=== PATIENT | female | born 1945 | race Caucasian/White ===

== ENCOUNTER 2022-02-26 08:49 | Outpatient (CLI) | payer MEDICARE, BC, SELFPAY ==
--- NOTE | 2022-02-26 09:15 | CRLHL7_ITS ---
For Patients: As a result of the Century Cures Act, medical imaging exams and procedure reports are released immediately into your electronic medical record. You may view this report before your referring provider. If you have questions, please contact your health care provider. BILATERAL SCREENING MAMMOGRAM WITH COMPUTER-AIDED DETECTION AND TOMOSYNTHESIS TECHNIQUE: CC and MLO views were obtained. These mammographic images have been obtained using full-field digital technique. These mammographic images were interpreted with the benefit of computer-aided detection. Breast Tomosynthesis was used in this interpretation. COMPARISON FILM: 01/05/21, 12/07/19, 06/23/18. FINDINGS: There are scattered areas of fibroglandular density IMPRESSION: There is no radiographic evidence for malignancy. ASSESSMENT: BI-RADS Category 1: Negative RECOMMENDATION: Routine screening mammogram in 1 year. A lay language report of this examination will be provided to the patient. Param Lubin M.D. Diagnostic Radiologist [email or web address] JAZZY/Dictated by: Param Lubin MD @ 02/26/2022 10:11:00 AM (Electronically Signed)
== END 2022-02-26 08:50 | disposition home or self-care (01) ==
PROVIDERS: Visit Provider Family Medicine
DX: Z12.31 Encounter for screening mammogram for malignant neoplasm of breast (principal)
CPT/HCPCS: 77063; 77067

== ENCOUNTER 2022-11-15 11:28 | Outpatient (CLI) | payer MEDICARE, BC, SELFPAY | END 2022-11-15 11:29 | disposition home or self-care (01) | LOC: OP CLINIC 11:31 | PROVIDERS: PCP Family Medicine; Visit Provider Internal Medicine | DX: Z86.010 Personal history of colon polyps (principal); K57.30 Diverticulosis of large intestine without perforation or abscess without bleeding | CPT/HCPCS: 45378; J2250; J3010 ==

== ENCOUNTER 2023-03-04 10:26 | Outpatient (CLI) | payer MEDICARE, BC, SELFPAY ==
--- NOTE | 2023-03-04 10:45 | CRLHL7_ITS ---
For Patients: As a result of the Century Cures Act, medical imaging exams and procedure reports are released immediately into your electronic medical record. You may view this report before your referring provider. If you have questions, please contact your health care provider. BILATERAL SCREENING MAMMOGRAM WITH COMPUTER-AIDED DETECTION AND TOMOSYNTHESIS TECHNIQUE: CC and MLO views were obtained. These mammographic images have been obtained using full-field digital technique. These mammographic images were interpreted with the benefit of computer-aided detection. Breast Tomosynthesis was used in this interpretation. COMPARISON FILM: 02/26/22, 01/05/21, 12/07/19. FINDINGS: There are scattered areas of fibroglandular density IMPRESSION: There is no radiographic evidence for malignancy. ASSESSMENT: BI-RADS Category 1: Negative RECOMMENDATION: Routine screening mammogram in 1 year. A lay language report of this examination will be provided to the patient. Param Lubin M.D. Diagnostic Radiologist [email or web address] JAZZY/Dictated by: Param Lubin MD @ 03/04/2023 12:48:00 PM (Electronically Signed)
== END 2023-03-04 10:27 | disposition home or self-care (01) ==
LOC: MAMMO 10:28
PROVIDERS: PCP Family Medicine; Visit Provider Family Medicine
DX: Z12.31 Encounter for screening mammogram for malignant neoplasm of breast (principal)
CPT/HCPCS: 77063; 77067

== ENCOUNTER 2023-04-15 12:34 | Outpatient (CLI) | payer MEDICARE, BC, SELFPAY ==
--- NOTE | 2023-04-15 13:00 | CRLHL7_ITS ---
For Patients: As a result of the Century Cures Act, medical imaging exams and procedure reports are released immediately into your electronic medical record. You may view this report before your referring provider. If you have questions, please contact your health care provider. DXA BONE MINERAL DENSITY STUDY Current height (in): 61.1. Weight (lb): 166.0. Menopause age: 54. Ethnicity: White. Reason for exam: Osteoporosis. 1. Have you had a previous hip or vertebral fracture? No. 2. Have you had any fractures during your adult life which did not result from significant trauma (e.g., auto accident)? No. 3. Did either of your parents have a hip fracture? Yes. 4. Do you smoke? No. 5. Have you ever taken Glucocorticoids? No. 6. Do you have rheumatoid arthritis? No. 7. Do you have secondary osteoporosis? No. 8. Do you drink 3 or more alcoholic drinks per day? No. 9. Are you being treated for osteoporosis? No. 10. Have you ever taken any of the following medications: Actonel, Evista, Fosamax, Miacalcin, Reclast, Boniva, Forteo, HRT (i.e. estrogen/hormone therapy), Protelos, Prolia, Vitamin D, Calcium, other ??? please specify. ANSWER: Yes, vitamin D. 11. Do you have any of the following medical conditions: Anorexia or bulimia, asthma or emphysema, end stage renal disease, hyperparathyroidism, any seizure disorders, cancer, inflammatory bowel diseases, hysterectomy, other ??? please specify. ANSWER: No. 12. What was your maximum height (inches)? 62. 13. Do you perform weight bearing exercise regularly? No. 14. Do you regularly consume dairy products? Yes. 15. Do you drink caffeinated beverages? Yes. 16. At what age did your period start? 14. 17. Are you premenopausal? No. 18. How many full-term pregnancies have you had? 0. 19. Have you ever missed your period for more than 6 months in a row (not including or menopause)? No. TECHNIQUE: Bone mineral density study was performed using the MedTest DX. FINDINGS: The results of the study expressed as bone mineral density (BMD) are as follows: Lumbar spine L1 to L2: BMD: 1.096 g/cm2. T-score: 1.1. Z-score: 3.4. Neck Left: BMD: 0.745 g/cm2. T-score: -0.9. Z-score: 1.3. Right: BMD: 0.755 g/cm2. T-score: -0.8. Z-score: 1.3. Total Left: BMD: 0.987 g/cm2. T-score: 0.4. Z-score: 2.3. Right: BMD: 1.049 g/cm2. T-score: 0.9. Z-score: 2.9. IMPRESSION: Normal bone density. *Comparison exams done prior to 11/2019 were performed on different unit, NCR. COMPARISON: Compared with scan of 08/01/2011, the bone mineral density has increased by 9.0 percent at the spine and increased by 2.6 percent at the hip. Bernie Curiel M.D. Diagnostic/Breast Radiologist [email or web address] MATHEW/marvel: Transcribed: 8:57 am DW/Dictated by: Bernie Curiel MD @ 04/15/2023 4:06:00 PM (Electronically Signed)
== END 2023-04-15 12:35 | disposition home or self-care (01) ==
LOC: RAD 12:35
PROVIDERS: PCP Family Medicine; Visit Provider Family Medicine
DX: M81.0 Age-related osteoporosis without current pathological fracture (principal)
CPT/HCPCS: 77080

== ENCOUNTER 2023-11-11 11:18 | Outpatient (CLI) | payer MEDICARE, BC, SELFPAY | END 2023-11-11 11:19 | disposition home or self-care (01) | PROVIDERS: PCP Family Medicine; Visit Provider Surgery | DX: K80.20 Calculus of gallbladder without cholecystitis without obstruction (principal); R10.13 Epigastric pain | CPT/HCPCS: 80076; 83690 ==

== ENCOUNTER 2023-11-17 10:07 | Day surgery (SDC) | payer MEDICARE, BC, SELFPAY ==
[2023-11-17] VITALS (13 sets, daily range): BP systolic 138–176; BP diastolic 68–88; PULSE 59–77; RESP 14–18; TEMP 36.2–36.8; O2SAT 95–98; BMI 32.3
[2023-11-17] MEDS: LACTATED RINGERS 1000 ML 1,000 ML 100 ML IV (10:10)
[2023-11-17] MEDS: SODIUM CHLORIDE 0.9 % (FLUSH) 10 ML SYRINGE IVF (10:30)
--- NOTE | 2023-11-17 10:44 | W.PM.H&PU ---
History & Physical Update History & Physical Update H&P Reviewed and patient assessed: The following changes are noted below H&P Updates: Patient's bilirubin was noted to be slightly elevated in clinic Last week. Therefore have added on cholangiograms. Will recheck labs this morning preop as well.
--- NOTE | 2023-11-17 10:45 | P.GSOP_ITS ---
Operative Note Date of procedure: 11/17/23 Pre-op diagnosis: 1. Cholecystitis 2. Elevated bilirubin, concerning for possible choledocholithiasis Post-op diagnosis: 1. Cholecystitis 2. No evidence of choledocholithiasis on cholangiogram Type of Procedure: 1. Laparoscopic cholecystectomy 2. Intraoperative cholangiogram Indications: The patient is a 78-year-old female who developed severe epigastric and right upper quadrant pain last month. She was seen at an outside facility. She was found to have gallstones and a mild elevation in transaminases. Scan showed possible biliary dilatation, however there was no comment of this on her ultrasound. She continued to have symptoms after this episode, despite eating a low-fat diet. In clinic she was found to have a direct bilirubin of 0.8. I recommended cholecystectomy with cholangiogram to rule out common bile duct obstruction. Procedure Description: After discussing the risks and benefits of the procedure, the patient signed informed consent.? The operative site was marked and the patient was brought to the operating room and placed on the operating table in supine position.? Care was taken to pad the patient's pressure points.?? The patient was then intubated by anesthesia.?? The operative site was then prepped and draped in the usual sterile fashion.? A time-out was then performed. Entrance to the abdomen was gained via a 5 mm Visiport in the left upper quadrant. The abdomen was insufflated and briefly surveyed for signs of injury. There was none. A 10 mm umbilical port was placed as well as 2 working ports along the right costal margin, all under direct vision. The patient was then placed in reverse Trendelenburg position with the right side up. The gallbladder fundus was grasped and retracted cephalad. A small amount of dissection was needed to free omental adhesions from the gallbladder. The infundibulum was grasped. A combination of hook cautery and blunt dissection was used to carefully dissect out the cystic duct and artery until they could clearly be seen entering the gallbladder without any intervening structures. There was mild edema noted in the tissues, indicating cholecystitis. The cystic artery was then clipped with 2 clips proximal 1 clip distal. This was transected. The cystic duct was mildly dilated. I placed a clip proximally. I then created a ductotomy with a scissor. A cholangiocatheter was then placed in the duct and fluoro was brought into the field. Contrast was in jected into the duct. There was brisk filling of the cystic duct, common bile duct, right and left hepatic ducts as well as the duodenum. There did not appear to be any filling defects noted. The cholangiocatheter was then removed. Because the cystic duct was mildly dilated, the duct was transected and an 0 Vicryl and an 0 PDS endoloop were each placed on the cystic duct stump. The gallbladder was then taken off of the liver bed and removed from the abdomen using an Endo-Catch bag. The gallbladder bed was surveyed for hemostasis which appeared excellent. A small amount of sludge which had spilled was suctioned from the abdomen. The patient was laid flat, the abdomen desufflated and the ports removed. The umbilical port fascia was closed with 0 Vicryl. The skin was closed with absorbable subcuticular suture. Sterile dressings were then applied. Instrument sponge and needle counts were correct at the end of the case. The patient was then woken and transferred to the PACU in stable condition. The patient tolerated the procedure well. Findings: 1. Gallstones with pericholecystic inflammation indicating cholecystitis 2. Negative intraoperative cholangiogram. Anesthesia: GETA Surgeon: Maria Del Carmen Cardenas MD Estimated blood loss (mL): 5 Specimen: Gallbladder Condition: stable Disposition: PACU
[2023-11-17 10:59] LABS: Albumin* 4.5 g/dL (3.3-5.0)
--- NOTE | 2023-11-17 11:01 | W.ANESCHARGE ---
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
[2023-11-17 11:02] LABS: Alanine Aminotransferase* 87 U/L (4-35); Alkaline Phosphatase* 130 U/L (40-150); Aspartate Amino Transferase* 41 U/L (12-35); Bilirubin Direct* 0.5 mg/dL (0.0-0.5); Bilirubin Total* 0.9 mg/dL (0.1-1.5); Total Protein* 7.5 g/dL (6.0-8.3)
[2023-11-17] MEDS: CEFAZOLIN 2 GM INJ IVP (11:05)
[2023-11-17] MEDS: 0.9% SODIUM CHL 50 ML VIAL INJECTION (11:40)
[2023-11-17] MEDS: iopamidoL 50 ML VIAL INJECTION (11:40)
[2023-11-17] MEDS: BUPIVACAINE 0.25% 30 ML INJECTION (12:00)
--- NOTE | 2023-11-17 12:30 | CRLHL7_ITS ---
For Patients: As a result of the Century Cures Act, medical imaging exams and procedure reports are released immediately into your electronic medical record. You may view this report before your referring provider. If you have questions, please contact your health care provider. INDICATION : Laparoscopic cholecystectomy. TECHNIQUE : Intraoperative cholangiogram. Contrast injected via gallbladder neck and cystic duct. FINDINGS : Fluoroscopy time was 30.8 seconds. 3 images were obtained. IMPRESSION : Normal caliber intra and extrahepatic ducts. Small filling defects present on the 1st 2 images representing air bubbles or small stones. The final image appears more clear. Contrast seen within the duodenum. Dictated by Param Lubin MD @ 11/18/2023 11:39:50 AM (Electronically Signed)
--- NOTE | 2023-11-17 12:43 | W.ANESCHARGE ---
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
--- NOTE | 2023-11-28 12:00 | W.ANESCHARGE ---
Anesthesia Charges Start Date/Time Anesthesia Start Date: 11/17/23 Anesthesia Start Time: 10:55 Stop Date/Time Anesthesia Stop Date: 11/17/23 Anesthesia Stop Time: 12:37 Summary Extremes of Age - Over 70 or under 1: MDA
== END 2023-11-17 14:21 | disposition home or self-care (01) ==
LOC: OR 10:10
PROVIDERS: PCP Family Medicine; Visit Provider Surgery
PROC: 0FT44ZZ Resection of Gallbladder, Percutaneous Endoscopic Approach (ICD-10-PCS; CPT 47563; principal; 2023-11-17 11:00)
DX: K80.10 Calculus of gallbladder with chronic cholecystitis without obstruction (principal); R74.01 Elevation of levels of liver transaminase levels
CPT/HCPCS: 47563; 00790; 36415; 74300; 76000; 80076; 88304; 99100; J0665; J0690; J1100; J2371; J2405; J3010; J7120; Q9967

== ENCOUNTER 2024-03-05 12:40 | Outpatient (CLI) | payer MEDICARE, BC, SELFPAY ==
--- OUTSIDE RECORDS SUMMARY | 2024-03-05 12:43 | XMS_ITS | Referral Summary ---
Author Organization [facility] Address [address] [place] [address] Care Team Providers Care Tanning Drum Operator Name Role Phone Merle [place] NP Primary Care Provider Allergies No known active allergies Medications Medication Sig Dispensed Refills Start Date End Date Status metroNIDAZOLE (METROCREAM) 0.75 % creamIndications:Ros acea Apply topically 2 times daily Apply on cheeks and nose. 45 g 11 05/02/2014 Active Additional Information Patient not taking.Reported on 01/23/2018 Cukfpfz-Njsriwbte-Cx tamin D (CALCIUM 500 PO) Take 1,000 mg by mouth Active vitamin D3 (CHOLECALCIFEROL) 2000 units (50 mcg) tablet Take 1 tablet by mouth daily Active Active Problems Problem Noted Date Diagnosed Date BCC (basal cell carcinoma), face 05/05/2012 Chronic skin ulcer 12/10/2011 Overview: Problem list name updated by automated process. Provider to review Diagnosis updated by automated process. Provider to review and confirm. Immunizations Name Administration Dates Next Due Influenza (IIV3) PF 03/19/2013,06/04/2012 Social History Tobacco Use Types Packs/Day Years Used Date Smoking Tobacco: Never Smokeless Tobacco: Never Alcohol Use Standard Drinks/Week Comments Not Asked 0 (1 standard drink = 0.6 oz pur e alcohol) PHQ-2 Answer Date Recorded PHQ-2 Score 0 03/22/2019 Adolescent Education Answer Date Record ed Getting School Help Needed Not on file 03/09 Sex and Gender Information Value Date Recorded Sex Assigned at Not on file Gender Identity Not on file Sexual Orientation Not on file Last Filed Vital Signs Vital Sign Reading Time Taken Comments Blood Pressure 175/94 10/08/2011 9:15 AM CDT Pulse 72 10/08/2011 9:15 AM CDT Temperature - - Respiratory Rate - - Oxygen Saturation - - Inhaled Oxygen Concentration - - Weight - - Height - - Body Mass Index - - Plan of Treatment Not on file Care Teams Tanning Drum Operator Relationship Specialty Start Date End Date Merle [place] NP PCP - General 06/05/15
--- OUTSIDE RECORDS SUMMARY | 2024-03-05 12:43 | XMS_ITS ---
Author Organization [facility] Address [address] [place] [address] Care Team Providers Care Nursing Officer Name Role Phone Unavailable Unavailable Unavailable Surgery Details Not on file Complications Check Surgery Details section. Procedure Estimated Blood Loss Check Surgery Details section. Procedure Findings Check Surgery Details section. Procedure Specimens Taken Check Surgery Details section.
--- OUTSIDE RECORDS SUMMARY | 2024-03-05 12:43 | XMS_ITS | Encounter Summary ---
Author Organization [facility] er Address [address] [place] [address] Care Team Providers Care Front Desk Associate Name Role Phone Rustam Goodrich MD Primary Care Provider Reason for Visit * Consultation (Routine) - Authorized Specialty Diagnoses / Procedures Referred By Mike dobbins Referred To Contact Sleep Medicine Diagnoses At risk for sleep apnea Procedures Home sleep test Rustam Goodrich MD [address] [place] [address] Referral ID Status Reason Start Date Expiration Date Visits Requested Visits Authorized [id number] Authorized Specialty Services Required 11/12/2023 05/13/2024 1 1 Encounter Details Date Type Department Care Team (Latest Contact Info) Description 12/01/2023 2:40 PM CDT Clinical Support [facility] [address] Sleep Medicine [address] [place] [phone] At risk for sleep apnea Social History Tobacco Use Types Packs/Day Years Used Date Smoking Tobacco: Never Smokeless Tobacco: Never Alcohol Use Standard Drinks/Week Comments Yes 1 (1 standard drink = 0.6 oz pur e alcohol) B1300 Health Literacy Answer Date Recor ded How often do you need to hav e someone help you when you read instructions, pamphlets, or other written material from your doctor or pharmacy? Never 10/23/2023 Humiliation, Afraid, Rape, and Kick questionnair e Answer Date Recorded Within the last year, have y ou been afraid of your partner or ex-partner? No 10/23/2023 Within the last year, have y ou been humiliated or emotionally abused in other ways by your partner or ex-partner? No Within the last year, have y ou been kicked, hit, slapped, or otherwise physically hurt by your partner or ex-partner? No 10/23/2023 Within the last year, have y ou been raped or forced to have any kind of sexual activity by your partner or ex-partner? No 10/23/2023 Social Connection and Isolat ion Panel [NHANES] Answer Date Recorded In a typical week, how many times do you talk on the phone with family, friends, or neighbors? More than three times a week 10/23/2023 How often do you get togethe r with friends or relatives? Once a week 10/23/2023 How often do you attend chur or gnosticist services? More than 4 times per year 10/23/2023 Do you belong to any clubs o r organizations such as denominational groups, unions, fraternal or athletic groups, or school groups? Yes 10/23/2023 How often do you attend meet ings of the clubs or organizations you belong to? More than 4 times per year 10/23/2023 Are you , , di vorced, , never , or living with a partner? 10/23/2023 AUDIT-C Answer Date Recorded Q1: How often do you have a drink containing alc ohol? Monthly or less 10/23/2023 Q2: How many drinks containi ng alcohol do you have on a typical day when you are drinking? 1 or 2 10/23/2023 Q3: How often do you have si x or more drinks on one occasion? Never 10/23/2023 Overall Financial Resource Strain (CARDIA) Answe r Date Recorded How hard is it for you to pa y for the very basics like food, housing, medical care, and heating? Not hard at all 10/23/2023 PHQ-2 Answer Date Recorded PHQ-9 Total Score 0 11/12/2023 [facility] - Occupational Stress Questionnaire Answer Date Recorded Do you feel stress - tense, restless, nervous, or anxious, or unable to sleep at night because your mind is troubled all the time - these days? Not at all 10/23/2023 Exercise Vital Sign Answer Date Recorde d On average, how many days pe r week do you engage in moderate to strenuous exercise (like a brisk walk)? 3 days 10/23/2023 On average, how many minutes do you engage in exercise at this level? 30 min 10/23/2023 Hunger Vital Sign Answer Date Recorded Within the past 12 months, y ou worried that your food would run out before you got the money to buy more. Never true 10/23/19 24 Within the past 12 months, t he food you bought just didn't last and you didn't have money to get more. Never true 10/23/2023 PRAPARE - Transportation Answer Date Re corded In the past 12 months, has l ack of transportation kept you from medical appointments or from getting medications? No 10/01 In the past 12 months, has l ack of transportation kept you from meetings, work, or from getting things needed for daily living? No 10/23/2023 Housing Stability Vital Sign Answer Rao e Recorded In the last 12 months, was t here a time when you were not able to pay the mortgage or rent on time? No 03/26/2023 In the last 12 months, how many places have you lived? 1 03/26/2023 In the last 12 months, was t here a time when you did not have a steady place to sleep or slept in a detention (including now)? No 03/26/2023 Housing Stability Vital Sign Answer Rao e Recorded In the last 12 months, was t here a time when you were not able to pay the mortgage or rent on time? No 10/23/2023 In the past 12 months, how m any times have you moved where you were living? 1 10/23/2023 At any time in the past 12 m [facility], were you homeless or living in a detention (including now)? No 10/23/2023 Education Answer Date Recorded What is the highest level of school you have completed or the highest degree you have received? High school graduate 01/08/2019 Sex and Gender Information Value Date Recorded Sex Assigned at Female 10/10/2020 11:09 AM CDT Gender Identity Female 10/10/2020 11:09 AM CDT Sexual Orientation Not on file documented as of this encounter Plan of Treatment Upcoming Encounters Date Type Department Care Team (Late st Contact Info) Description 03/18/2024 11:00 AM CDT Appointment [facility] [address] [address] 04/12/2024 1:00 PM ELECTRO MECHANICAL SOLAR TECHNICIAN Telemedicine [facility] 52 Sleep Medicine [address] [facility] 52 [place] [address] Stephanie Nicholson, TOPPIECE CUTTER, HIGH RIGGER [address] [facility] 52 [place] [address] documented as of this encounter Visit Diagnoses Diagnosis At risk for sleep apnea documented in this encounter Care Teams Front Desk Associate Relationship Specialty Start Date End Date Rustam Goodrich MD [address] [facility] 20 [place] [address] PCP - General 03/20/23 documented as of this encounter
--- OUTSIDE RECORDS SUMMARY | 2024-03-05 12:43 | XMS_ITS | Encounter Summary ---
Author Organization [facility] er Address [address] [place] [address] Care Team Providers Care Generation Technician Name Role Phone Rustam Goodrich MD Primary Care Provider [phone] Encounter Details Date Type Department Care Team (Late st Contact Info) Description 02/05/2024 Telephone [facility] [address] [place] [address] Rustam Goodrich MD [address] [facility] 20 [place] [address] Social History Tobacco Use Types Packs/Day Years [...] How often do you attend chur or methodist services? More than 4 times per year 10/23/2023 Do you belong to any clubs o r organizations such as jehovah's witness groups, unions, fraternal or athletic groups, or [...] Answer Date Recorded PHQ-9 Total Score 0 02/05/2024 [facility] - Occupational Stress Questionnaire Answer Date [...] place to sleep or slept in a correction (including now)? No 03/26/2023 Housing Stability Vital Sign Answer Rao e Recorded In the last 12 months, was t here a time when you were not able to pay the mortgage or rent on time? No 10/23/2023 In the past 12 months, how m any times have you moved where you were living? 1 10/23/2023 At any time in the past 12 m [facility], were you homeless or living in a correction (including now)? No 10/23/2023 Education Answer Date Recorded What is the highest level of school you have completed or the highest degree you have received? High school graduate 01/08/2019 Sex and Gender Information Value Date Recorded Sex Assigned at Female 10/10/2020 11:09 AM CDT Gender Identity Female 10/10/2020 11:09 AM CDT Sexual Orientation Not on file documented as of this encounter Miscellaneous Notes * Telephone Encounter - Dayanara Rodríguez RN - 02/05/2024 1:01 PM CDT Noted. * Telephone Encounter - Jojo Carney - 02/05/2024 12:31 PM CDT Referral faxed to [facility] RAD; fax [phone]. * Telephone Encounter - Dayanara Rodríguez RN - 02/05/2024 12:23 PM CDT Please fax referral to [facility] (Radiology) documented in this encounter Plan of Treatment Upcoming Encounters Date Type Department Care Team (Late st Contact Info) Description 03/18/2024 11:00 AM CDT Appointment [facility] [address] [address] 04/12/2024 1:00 PM FOSTER CARE CASE MANAGER Telemedicine [facility] 52 Sleep Medicine [address] [facility] 52 [place], [place] [id number] Stephanie Nicholson, WILDLIFE BIOLOGY TECHNICIAN, RESEARCH RN SPEC [phone] [facility] 52 [place] [address] documented as of this encounter Visit Diagnoses Not on filedocumented in this encounter Care Teams Generation Technician Relationship Specialty Start Date End Date Rustam Goodrich MD [address] [facility] 20 [place] [address] PCP - General 03/20/23 documented as of this encounter
--- OUTSIDE RECORDS SUMMARY | 2024-03-05 12:43 | XMS_ITS | Clinical Summary ---
Author Organization [facility] er Address [address] [place] [address] Care Team Providers Care Solar Sales Representative Name Role Phone Rustam Goodrich MD Primary Care Provider Allergies No known active allergies Medications Medication Sig Dispensed Refills Start Date End Date Status triamcinolone (KENALOG) 0.1 % cream Apply topically 2 (two) times a day Using on FACE Active ibuprofen (ADVIL) 400 MG tablet Take 1 tablet (400 mg total) by mouth every 6 (six) hours if needed for mild pain Take with food. Active Cholecalciferol (Vitamin D-3) 25 MCG (1000 UT) capsule Take 1 capsule by mouth 1 (one) time each day Active losartan (Cozaar) 50 MG tabletIndications: Primary hypertension Take one a day for blood pressure 90 tablet 3 04/02/2023 Active azelaic acid (FINACEA) 15 % gelIndications:Ros acea Apply 1 application topically 2 (two) times a day Do not fill until requested. 45 g 11 03/04/2024 5 Active famotidine (PEPCID) 10 MG tablet Take by mouth 4 Discontinue d(Therapy Completed) Active Problems Problem Noted Date Diagnosed Date Latent tuberculosis 10/24/2023 Gallbladder colic 10/24/2023 Diverticulosis 04/02/2023 Primary hypertension 04/02/2023 Acne rosacea 02/11/2022 Primary osteoarthritis of right knee 02/03/2021 Rotator cuff strain, left, initial encounter 08/2020 Obesity (BMI 30.0-34.9) 01/19/2020 Family history of colon cancer in mother 020 Adenomatous colon polyp 04/12/2013 Overview: Overview: Colonoscopy 04/2013 polyp repeat in 5 years BCC (basal cell carcinoma), face 05/05/2012 Encounters Date Type Department Care Team Description 03/04/2024 2:00 PM CDT Office Visit [address] 11 [place] [address] Tiki Alexander MD Encounter for follow-up examination after completed treatment for cancer (Primary Dx); Keratosis, seborrheic; History of skin cancer; Acne rosacea; Folliculitis 02/17/2024 Telephone [place] [address] [place] [address] Rustam Goodrich MD VACCINATION TDAP 02/05/2024 11:20 AM CDT Office Visit [address] [address] Rustam Goodrich MD Right lower quadrant pain (Primary Dx); Chronic SI joint pain; Chronic right hip pain 02/05/2024 Telephone [place] [address] [place] [address] Rustam Goodrich MD 12/09/2023 Orders Only Family Medicine 4th Floor [address] [place] [address] Rustam Goodrich MD Primary hypertension from Last 3 Months Immunizations Name Administration Dates Next Due COVID-19, mRNA, LNP-S, bival ent booster 12 yr and older, PF, 30mcg/0.3mL dose (pfizer) 03/21/2022 COVId-19, mRNA, LNP-s, PF, 5 0mcg/0.5mL Ages 12+ (Moderna Spikevax) 03/27/2023 Covid-19 Vaccine, Unspecifie d Formulation 03/26/2023 Flu Vaccine High Dose 65yrs and Older IM 03/18/2023,04/04/2022,04/04/2021,03/20,04/14/2019,03/27/2018,03/24/2017 ,04/03/2015,03/28/2014 Hepatitis A 09/02/2012,07/16/1999 Hepatitis B 01/15/2000,08/16/1999,07/16/1999 INFLUENZA QUADRIVALENT MDV (IM) 03/18/20,04/04/2022,04/14/2019,03/27,03/24/2017,04/03/2015,03/28/2014 ,04/06/2010 Influenza, Split Virus, Triv alent, Preservative 03/19/2013,06/04/2012 Influenza, Trivalent, PF 04/06/2010 Influenza, Unspecified 03/19/2013,06/04/2012 Pneumococcal Conjugate 13-Valent 08/16/2016 Pneumococcal Polysaccharide 07/22/2011 TD Preservative Free 04/06/2010 Td 04/06/2010 Tdap 09/02/2012 Typhoid Inactivated 09/02/2012 Zoster 08/05/2011 Zoster Recombinant 03/01/2022,11/20/2021 Family History Medical History Relation Comments Stroke Brother 2 ALS Father at 71 Colon cancer Mother at 103 Relation Status Comments Brother 1 Alive Brother 2 Brother 3 Passed shortly a fter Father Mother (Age 103) Social History Tobacco Use Types Packs/Day Years Used Date Smoking Tobacco: Never Smokeless Tobacco: Never Tobacco Cessation:Counseling Given: No Alcohol Use Standard Drinks/Week Comments Yes 1 [...] any clubs o r organizations such as restorationist groups, unions, fraternal or athletic groups, or [...] Date Recorded PHQ-9 Total Score 0 02/05/2024 [facility] - Occupational Stress [...] place to sleep or slept in a fpc (including now)? No 03/26/2023 Housing Stability Vital Sign Answer Rao e Recorded In the last 12 months, was t here a time when you were not able to pay the mortgage or rent on time? No 10/23/2023 In the past 12 months, how m any times have you moved where you were living? 1 10/23/2023 At any time in the past 12 m [facility], were you homeless or living in a fpc (including now)? No 10/23/2023 Education Answer Date Recorded What is the highest level of school you have completed or the highest degree you have received? High school graduate 01/08/2019 Sex and Gender Information Value Date Recorded Sex Assigned at Female 10/10/2020 11:09 AM CDT Gender Identity Female 10/10/2020 11:09 AM CDT Sexual Orientation Not on file Last Filed Vital Signs Vital Sign Reading Time Taken Comments Blood Pressure 124/78 02/05/2024 11:18 AM CDT Pulse 74 02/05/2024 11:16 AM CDT Temperature 36.3 ??C (97.3 ??F) 02/05/2024 11:16 AM C DT Respiratory Rate 16 02/05/2024 11:16 AM CDT Oxygen Saturation 95% 02/05/2024 11:16 AM CDT Inhaled Oxygen Concentration - - Weight 73.3 kg (161 lb 9.6 oz) 02/05/2024 11:16 AM CDT Height 152.4 cm (5') 02/05/2024 11:16 AM CDT Body Mass Index 31.56 02/05/2024 11:16 AM CDT Plan of Treatment Upcoming Encounters Date Type Department Care Team (Late st Contact Info) Description 03/18/2024 11:00 AM CDT Appointment [facility] [address] [facility] [address] [place] [address] 04/12/2024 1:00 PM NEONATAL SPECIALIST Telemedicine [facility] 52 Sleep Medicine [address] [facility] [address] [place] [address] Stephanie Nicholson, NEONATAL SPECIALIST, AUTOMATION SOFTWARE ENGINEER [address] [facility] [address] [place], [place] [id number] Health Maintenance Due Date Last Done Comments Bone Density Scan 01/15/2024 01/14/2019, , 08/27/2016 COVID-19 Vaccine ( season) 2024 03/27/2023, 03/26/2023, 03/21/2022, Additional history exists Influenza Vaccine (#1) 2024 , 03/18/2023, 04/04/2022, Additional history exists Mammogram 03/04/2024 03/04/2023, 02/01, 01/05/2021, Additional history exists Medicare Annual Wellness Visit (AWV) 10/22/2024 10/23/2023 Fall Risk Performed 02/04/2025 02/05/2024 Colonoscopy 11/16/2027 07/24/2018 DTaP,Tdap,and Td Vaccines (3 - Td or Tdap) 02/04/2034 02/05/2024, 09/02/2012, 04/06/2010, Additional history exists Pneumococcal Vaccine: 65+ Years Completed 08/16/2016, 07/22/2011 Zoster Vaccines Completed 03/01/2022, 11/01, 08/05/2011 HPV Vaccines Aged Out No longer eligi ble based on patient's age to complete this topic Advance Directives For more information, please contact: [phone] Documents on File Type Date Recorded Patient Ecdis N Navigation Operator Expl anation Advance Directive 08/04/2020 2:37 PM Advanc e Directive Care Teams Solar Sales Representative Relationship Specialty Start Date End Date Rustam Goodrich MD [address] [place] [phone] PCP - General 03/20/23
--- OUTSIDE RECORDS SUMMARY | 2024-03-05 12:43 | XMS_ITS | Referral Summary ---
Author Organization [facility] Address [address] [place] [address] Care Team Providers Care Financial Reserve Clerk Name Role Phone Unavailable Primary Care Provider Unavailabl e Source Comments Patient records contain information from all sites at [facility]. For routine questions regarding patient records, call [phone] during business hours, M-F 8:00 AM - 5:00 PM Central Time. Record requests for emergency care only can be directed to [phone] at any time.[facility] Encounters Date Type Department Care Team Description 02/17/2024 12:51 PM CDT - 02/17/2024 11:59 PM CDT Hospital Encounter Department of Radiology in [address] [place] [address] Rustam Goodrich II, M.D. Pain Right Lower Quadrant Discharge Disposition: Home or Self Care from Last 3 Months Allergies No known active allergies Medications Medication Sig Dispensed Refills Start Date End Date Status cholecalciferol (VITAMIN D3) 50 mcg (2,000 Unit) tablet Take 1 tablet by mouth daily. Active losartan (COZAAR) 50 mg tablet Take 50 mg by mouth daily. 04/02/2023 Active metroNIDAZOLE (METROCREAM) 0.75 % cream Apply 1 Application topically 2 (two) times a day. 05/02/2014 Active Immunizations Name Administration Dates Next Due Influenza, Unspecified 03/19/2013,06/04/2012 Social History Tobacco Use Types Packs/Day Years Used Date Smoking Tobacco: Never Tobacco Cessation:Counseling Given: Not Answered Nutrition Answer Date Recorded Nutrition: EVOO Fat Source 13 12/27 Nutrition: Servings of Fruits/Vegetables per Day Not on file 12/28/2019 Dental Answer Date Recorded Dental: Regular Dentist Unknown 07/26/19 21 Sex and Gender Information Value Date Recorded Sex Assigned at Not on file Gender Identity Not on file Sexual Orientation Not on file Last Filed Vital Signs Vital Sign Reading Time Taken Comments Blood Pressure 144/69 10/22/2023 5:30 AM CDT Pulse 73 10/22/2023 5:45 AM CDT Temperature 36.2 ??C (97.2 ??F) 10/22/2023 2:31 AM CD T Respiratory Rate 17 10/22/2023 5:45 AM CDT Oxygen Saturation 98% 10/22/2023 5:45 AM CDT Inhaled Oxygen Concentration - - Weight 72.8 kg (160 lb 7.9 oz) 10/22/2023 2:30 A M CDT Height - - Body Mass Index - - Plan of Treatment Not on file Procedures Procedure Name Priority Date/Time Associated Diagnosis Comments US INGUINAL RIGHT RAD - Routine (most inpatients and all outpatients) 02/17/2024 1:23 PM CDT Pain Right Lower Quadrant COMPREHENSIVE METABOLIC PANEL, S/P STAT 10/22/2023 3:01 AM CDT OUTSIDE MG MAMMOGRAM Routine 08/01/2008 10:52 AM FLOW TRADER from Last 3 Months or Most Recently Relevant to Health Maintenance Results * US Inguinal Right (02/17/2024 1:23 PM CDT) Anatomical Region Laterality Modality Pelvis, Ultrasound RST LOS, Ultrasound FLA LOS, Ultrasound ARZ LOS Right Ultrasound Impressions 02/17/2024 2:07 PM CDT 1. No sonographic evidence of hernia. 2. No fluid collection or adenopathy. Narrative 02/17/2024 2:07 PM CDT EXAM: US INGUINAL RIGHT COMPARISON: CT of the abdomen/pelvis performed 10/22/2023. FINDINGS: --Real-time grayscale and color Doppler sonographic imaging of the right inguinal region was performed in both supine and standing position as well as both without and with Valsalva maneuvering. --No sonographically evident hernia. --No fluid collection or abnormal morphology lymph nodes. Procedure Note Param Montanez M.D. - 02/17/2024 EXAM: US INGUINAL RIGHT COMPARISON: CT of the abdomen/pelvis performed 10/22/2023. FINDINGS: --Real-time grayscale and color Doppler sonographic imaging of the rightinguinal region was performed in both supine and standing position as wellas both without and with Valsalva maneuvering. --No sonographically evident hernia. --No fluid collection or abnormal morphology lymph nodes. IMPRESSION: 1. No sonographic evidence of hernia. 2. No fluid collection or adenopathy. Rustam Goodrich II, M.D. IMG US PROCEDUR ES * (ABNORMAL) Comprehensive Metabolic Panel (10/22/2023 3:01 AM CDT) Potassium, P 3.6 3.6 - 5.2 mmol/L 10/22/2023 3:32 AM CDT CNFL Sodium, P 141 135 - 145 mmol/L 10/22/2023 3:32 AM CDT CNFL Chloride, P 104 98 - 107 mmol/L 10/22/2023 3:32 AM CDT CNFL Bicarbonate, P 24 22 - 29 mmol/L 10/22/2023 3:32 AM CDT CNFL Anion Gap, P 13 7 - 15 10/22/2023 3:32 AM CDT CNFL BUN (Blood Urea Nitrogen), P 15 6 - 21 mg/dL 10/22/2023 3:32 AM CDT CNFL Creatinine 0.82 0.59 - 1.04 mg/dL 10/22/2023 3:32 AM CDT CNFL Estimated GFR (eGFR) 73 >=60 mL/min/BS A 10/22/2023 3:32 AM CDT CNFL Comment: Estimated GFR calculated using the 2020 CKD_EPI creatinine equation. Calcium, Total, P 9.6 8.8 - 10.2 mg/dL 10/22/2023 3:32 AM CDT CNFL Glucose, P 173(H) 70 - 140 mg/dL 10/22/2023 3:32 AM CDT CNFL Protein, Total, P 7.0 6.3 - 7.9 g/dL 10/22/2023 3:32 AM CDT CNFL Albumin, P 4.2 3.5 - 5.0 g/dL 10/22/2023 3:32 AM CDT CNFL Aspartate Aminotransferase (AST), P 26 8 - 43 U/L 10/22/2023 3:32 AM CDT CNFL Alkaline Phosphatase, P 80 35 - 104 U/L 10/22/2023 3:32 AM CDT CNFL Alanine Aminotransferase (ALT), P 57(H) 7 - 45 U/L 10/22/2023 3:32 AM CDT CNFL Bilirubin, Total, P 0.4 0.0 - 1.2 mg/dL 10/22/2023 3:32 AM CDT CNFL Blood (Blood, Venous) 10/22/2023 3:01 AM CDT 10/22/2023 3:15 AM CDT Renetta Godinez P.A.-C., P.A., M.S. [place] [address], [facility] CNFL [facility] [place] [address] * Outside MG Mammogram (08/01/2008 10:52 AM FLOW TRADER) 08/01/2008 10:5 2 AM FLOW TRADER Addenda Addendum by ProviderSuzette M.D. on 08/01/2008 10:52 AM FLOW TRADER ODM^^^MCR Digitized Mammogram 08/01/2008 10:52:54 Historical Provider IMG BI PROCEDURES [facility] [address] [place] [address], [facility] from Last 3 Months or Most Recently Relevant to Health Maintenance
--- OUTSIDE RECORDS SUMMARY | 2024-03-05 12:43 | XMS_ITS | Encounter Summary ---
Author Organization [facility] er Address [address] [place] [address] Care Team Providers Care Production Cost Estimator Name Role Phone Rustam Goodrich MD Primary Care Provider Reason for Referral * Consultation (Routine) - Authorized Specialty Diagnoses / Procedures Referred By Contstacia t Referred To Contact [facility] Care Diagnoses Primary hypertension Rustam Goodrich MD [address] [place] [address] [facility] Remote Monitoring [address] [place] [address] Referral ID Status Reason Start Date Expiration Date V isits Requested Visits Authorized [id number] Authorized 12/09/2023 12/09/2024 1 1 Encounter Details Date Type Department Care Team (Late st Contact Info) Description 12/09/2023 Orders Only [facility] 4th Floor [address] [place], [place] [address] Rustam Goodrich MD [address] [place] [address] Primary hypertension Social History Tobacco Use Types Packs/Day Years [...] How often do you attend chur or hoahaoism services? More than 4 times per year 10/23/2023 Do you belong to any clubs o r organizations such as buddhism groups, unions, fraternal or athletic groups, or [...] Date Recorded PHQ-9 Total Score 0 11/12/2023 [facility] - Occupational [...] place to sleep or slept in a fdc (including now)? No 03/26/2023 Housing Stability Vital Sign Answer Rao e Recorded In the last 12 months, was t here a time when you were not able to pay the mortgage or rent on time? No 10/23/2023 In the past 12 months, how m any times have you moved where you were living? 1 10/23/2023 At any time in the past 12 m [facility], were you homeless or living in a fdc (including now)? No 10/23/2023 Education Answer Date [...] Info) Description 03/18/2024 11:00 AM CDT Appointment [facility] [address] [address] 04/12/2024 1:00 PM PROFESSOR OF MARKETING Telemedicine [facility] 52 Sleep Medicine [address] [facility] 52 [place] [address] Stephanie Nicholson, CONSUMER EXPERIENCE CONSULTANT, FBI PROFILER [address] [facility] 52 [place] [address] Scheduled Referrals Name Type Priority Associated Diagnoses Orde r Schedule Ambulatory Referral for Remote Monitoring Outpatient Referral Routine Primary hypertension Ordered: 12/09/2023 documented as of this encounter Visit Diagnoses Diagnosis Primary hypertension Unspecified essential hypertension documented in this encounter Care Teams Production Cost Estimator Relationship Specialty Start Date End Date Rustam Goodrich MD [address] [facility] 20 [place] [address] PCP - General 03/20/23 documented as of this encounter
--- OUTSIDE RECORDS SUMMARY | 2024-03-05 12:43 | XMS_ITS | Clinical Summary ---
Author Organization [facility] Address [address] [facility] [place] [address] Care Team Providers Care Corporate Director Name Role Phone Merle Gordon NP Primary Care Provider Allergies No known active allergies Medications Medication Sig Dispensed Refills Start Date End Date Status metroNIDAZOLE (METROCREAM) 0.75 % creamIndications:Ros acea Apply topically 2 times daily Apply on cheeks and nose. 45 g 11 05/02/2014 Active Additional Information Patient not taking.Reported on 01/23/2018 Nfutlfp-Gwbrxkpcb-Zl tamin D (CALCIUM 500 PO) Take 1,000 [...] Dates Next Due Influenza (IIV3) PF 03/19/2013,06/04/2012 Family History Medical History Relation Comments Cancer No family hx of no hx of skin ca ncer Melanoma No family hx of Skin Cancer No family hx of Social History Tobacco Use Types Packs/Day Years [...] of Treatment Not on file Care Teams Corporate Director Relationship Specialty Start Date End Date Merle Gordon NP PCP - General 06/05/15
--- OUTSIDE RECORDS SUMMARY | 2024-03-05 12:43 | XMS_ITS | Clinical Summary ---
Author Organization [facility] Address [address] [place] [address] Care Team Providers Care Automotive Software Engineer Name Role Phone Unavailable Primary Care Provider Unavailabl e Source Comments Patient records contain information from all sites at [facility]. For routine questions regarding patient records, call [phone] during business hours, M-F 8:00 AM - 5:00 PM Central Time. Record requests for emergency care only can be directed to [phone] at any time.[facility] Allergies No known active allergies Medications Medication Sig Dispensed Refills Start Date End Date Status cholecalciferol (VITAMIN D3) 50 mcg (2,000 Unit) tablet Take 1 tablet by mouth daily. Active losartan (COZAAR) 50 mg tablet Take 50 mg by mouth daily. 04/02/2023 Active metroNIDAZOLE (METROCREAM) 0.75 % cream Apply 1 Application topically 2 (two) times a day. 05/02/2014 Active Encounters Date Type Department Care Team Description 02/17/2024 12:51 PM CDT - 02/17/2024 11:59 PM CDT Hospital Encounter Department of Radiology in [address] [place] [phone] Rustam Goodrich II, M.D. Pain Right Lower Quadrant Discharge Disposition: Home or Self Care from Last 3 Months Immunizations Name Administration Dates Next Due Influenza, [...] Mass Index - - Plan of Treatment Health Maintenance Due Date Last Done Comments Hepatitis C Screening 1945 RSV vaccine - (32-3 6 weeks) or 60+ years (1 - 1-dose 75+ series) 2020 Depression Screening (Annual PHQ-2) 06/02/2023 Fall Risk Screen (Annual) 06/02/2023 COVID-19 Vaccine (2023-2 5 season) 2024 03/21/2022, 03/02/2021, 08/12/2020, Additional history exists Influenza Vaccine (#1) 2024 , 04/04/2022, 04/04/2021, Additional history exists Creatinine Level (Kidney Fun ction Test) 10/21/2024 10/22/2023, 10/24/2022, 02/12/2022, Additional history exists Potassium Level 10/21/2024 10/22/2023, 10/01, 02/12/2022, Additional history exists Sodium Level 10/21/2024 10/22/2023, 10/01, 02/12/2022, Additional history exists DTaP,Tdap,and Td Vaccines (3 - Td or Tdap) 02/04/2034 02/05/2024, 09/02/2012, 04/06/2010 Colonoscopy Discontinued 03/30/2008 Colorectal Cancer Screening Discontinued Mammogram Discontinued 08/01/2008, 07/02/2007 Pneumococcal vaccine (65+ years) Completed 08/17/19 17, 07/22/2011 Zoster Vaccines Completed 03/01/2022, 11/01, 08/05/2011 CT Colonography Discontinued Cologuard Discontinued FIT Discontinued Procedures Procedure Name Priority Date/Time Associated Diagnosis Comments US INGUINAL RIGHT RAD - Routine (most inpatients and all outpatients) 02/17/2024 1:23 PM CDT Pain Right Lower Quadrant COMPREHENSIVE METABOLIC PANEL, S/P STAT 10/22/2023 3:01 AM CDT OUTSIDE MG MAMMOGRAM Routine 08/01/2008 10:52 AM IDENTIFICATION PRINTING MACHINE SETTER from Last 3 Months or Most Recently [...] collection or adenopathy. Rustam Goodrich II, M.D. G US PROCEDUR ES * (ABNORMAL) Comprehensive Metabolic [...] P.A.-C., P.A., M.S. LAB BLO OD ADD-ON [facility] [address] [place] [address], [place] CNFL [facility] in [address] [address] * Outside MG Mammogram (08/01/2008 10:52 AM IDENTIFICATION PRINTING MACHINE SETTER) 08/01/2008 10:5 2 AM IDENTIFICATION PRINTING MACHINE SETTER Addenda Addendum by ProviderSuzette M.D. on 08/01/2008 10:52 AM IDENTIFICATION PRINTING MACHINE SETTER ODM^^^MCR Digitized Mammogram 08/01/2008 10:52:54 Historical Provider IMG BI PROCEDURES [facility] [address] [place] [address] from Last 3 Months or Most Recently Relevant to Health Maintenance
--- OUTSIDE RECORDS SUMMARY | 2024-03-05 12:43 | XMS_ITS | Encounter Summary ---
Author Organization [facility] er Address [address] [place] [address] Care Team Providers Care Job Placement Specialist Name Role Phone Rustam Goodrich MD Primary Care Provider Reason for Visit * Reason Comments Skin Check Encounter Details Date Type Department Care Team (Late st Contact Info) Description 03/04/2024 2:00 PM CDT Office Visit [address] 11 [place] [address] Tiki Alexander MD [address] [place] [address] Encounter for follow-up examination after completed treatment for cancer (Primary Dx); Keratosis, seborrheic; History of skin cancer; Acne rosacea; Folliculitis Social History Tobacco Use Types Packs/Day Years [...] How often do you attend chur or mu-ism services? More than 4 times per year 10/23/2023 Do you belong to any clubs o r organizations such as bahai groups, unions, fraternal or athletic groups, or [...] Date Recorded PHQ-9 Total Score 0 02/05/2024 [facility] Occup[facility] ional [facility] - Occupational [...] place to sleep or slept in a mcfp (including now)? No 03/26/2023 Housing Stability Vital Sign Answer Rao e Recorded In the last 12 months, was t here a time when you were not able to pay the mortgage or rent on time? No 10/23/2023 In the past 12 months, how m any times have you moved where you were living? 1 10/23/2023 At any time in the past 12 m [facility], were you homeless or living in a mcfp (including now)? No 10/23/2023 Education Answer Date Recorded What is the highest level of school you have completed or the highest degree you have received? High school graduate 01/08/2019 Sex and Gender Information Value Date Recorded Sex Assigned at Female 10/10/2020 11:09 AM CDT Gender Identity Female 10/10/2020 11:09 AM CDT Sexual Orientation Not on file documented as of this encounter Patient Instructions * Patient Instructions* Tiki Alexander MD - 03/04/2024 2:00 PM CDT Buy some acne wash for your shoulders. One good brand is Panoxyl. Try the Finacea for your rosacea (15% azeleic acid). The 10% is available over the counter. Avoid all tanning bed use. Wear protective clothing, a broad-rimmed hat, and sunglasses when outdoors. Cover exposed skin with a broad-spectrum sunscreen that is SPF 30 or higher. Some good sun screens include Vanicream and Neutrogena. documented in this encounter Progress Notes * Tiki Alexander MD - 03/04/2024 2:00 PM CDT Subjective Patient ID: Philly Kerr is a 78 y.o. female. Chief Complaint Patient presents with Skin Check HPI The patient is a 78-year-old female presents to dermatology today for skin cancer screening examination. She has a prior history of basal cell carcinoma on the left nasal ala, status post Mohs micrographic surgery in 2012. Furthermore has a history of acne rosacea, previously on MetroCream. No family history of melanoma. Does not use tanning beds. Does try to protect her skin from the sun. She enjoys being outdoors at activities. Does try to wear her hat. She has not regularly been using her topical MetroCream and wonders if she could try something else. Does get some redness and fine bumps on the central face. Also mentions that recently she has been getting some acne type bumps on her upper back. The following portions of the patient's chart were reviewed in this encounter and updated as appropriate: Tobacco Allergies Meds Problems Med Hx Surg Hx Fam Hx Review of Systems Objective Visit Vitals Smoking Status Never Physical Exam Constitutional: Well-developed and well-nourished in no acute distress. Neurologic: The patient is alert and oriented ??3. Psychiatric: Mood and affect are normal. Respiratory: Nonlabored breathing. Musculoskeletal: Neck is supple. Skin: Examination of the scalp, face, neck, chest, abdomen, back, right upper extremity, right hand, left upper extremity, left hand, right lower extremity, left lower extremity, right foot, left foot, and nails performed. Scattered waxy keratoses. Scar left nasal ala. No evidence of recurrent skincancer. New scars on the abdomen from cholecystectomy. Patient does have some erythema and tiny papules on the central face. Also scattered tiny pustular lesions on the upper back some of which are excoriated. Assessment/Plan Diagnoses and all orders for this visit: Encounter for follow-up examination after completed treatment for cancer Comments: Monitoring for recurrence or development of new skin cancer. Keratosis, seborrheic Comments: Benign reassurance. History of skin cancer Comments: BCC, left nasal ala, no evidence of recurrence. Acne rosacea Comments: Starting Finacea gel twice daily. Orders: - azelaic acid (FINACEA) 15 % gel; Apply 1 application topically 2 (two) times a day Do not fill until requested. Folliculitis Comments: Upper back, recommended benzoyl peroxide wash. documented in this encounter Plan of Treatment Upcoming Encounters Date Type Department Care Team (Late st Contact Info) Description 03/18/2024 11:00 AM CDT Appointment [facility] [address] [address] 04/12/2024 1:00 PM BATCH STILL OPERATOR Telemedicine [facility] 52 Sleep Medicine [address] [place] [address] Stephanie Nicholson, CERTIFIED MEDICAL CODER, CEMENTER HAND [address] [address] documented as of this encounter Visit Diagnoses Diagnosis Encounter for follow-up examination after completed treatment for cancer- Primary Keratosis, seborrheic Other seborrheic keratosis History of skin cancer Personal history of other malignant neoplasm of skin Acne rosacea Rosacea Folliculitis Other specified disease of hair and hair follicles documented in this encounter Care Teams Job Placement Specialist Relationship Specialty Start Date End Date Rustam Goodrich MD [address] [address] PCP - General 03/20/23 documented as of this encounter
--- OUTSIDE RECORDS SUMMARY | 2024-03-05 12:43 | XMS_ITS | Encounter Summary ---
Author Organization [facility] Address [address] [place] [address] Care Team Providers Care Product Lead Name Role Phone Unavailable Primary Care Provider Unavailabl e Reason for Referral * Outpatient (Routine) - Closed Specialty Diagnoses / Procedures Referred By Mike dobbins Referred To Contact Diagnoses Pain Right Lower Quadrant Procedures US Inguinal Right Rustam Goodrich II, M.D. [address] [address] [facility] Referral ID Status Reason Start Date Expiration Date Visits Re quested Visits Authorized [id number] Closed 02/06/2024 02/05/2025 1 1 Reason for Visit * Outpatient (Routine) - Closed Specialty Diagnoses / Procedures Referred By Mike dobbins Referred To Contact Diagnoses Pain Right Lower Quadrant Procedures US Inguinal Right Rustam Goodrich II, M.D. [address] [address] [facility] Referral ID Status Reason Start Date Expiration Date Visits Re quested Visits Authorized [id number] Closed 02/06/2024 02/05/2025 1 1 Encounter Details Date Type Department Care Team (Latest Contact Info) Description 02/17/2024 12:51 PM CDT - 02/17/2024 11:59 PM CDT Hospital Encounter Department of Radiology in [address] [phone] Rustam Goodrich II, M.D. [address] [address] Pain Right Lower Quadrant Discharge Disposition: Home or Self Care Social History Tobacco Use Types Packs/Day Years Used Date Smoking Tobacco: Never Nutrition Answer Date Recorded Nutrition: EVOO Fat Source 13 12/27 Nutrition: Servings of Fruits/Vegetables per Day Not on file 12/28/2019 Dental Answer Date Recorded Dental: Regular Dentist Unknown 07/26/19 21 Sex and Gender Information Value Date Recorded Sex Assigned at Not on file Gender Identity Not on file Sexual Orientation Not on file documented as of this encounter Medications at Time of Discharge Medication Sig Dispensed Refills Start Date End Date cholecalciferol (VITAMIN D3) 50 mcg (2,000 Unit) tablet Take 1 tablet by mouth daily. losartan (COZAAR) 50 mg tablet Take 50 mg by mouth daily. 04/02/2023 metroNIDAZOLE (METROCREAM) 0.75 % cream Apply 1 Application topically 2 (two) times a day. 05/02/2014 documented as of this encounter Plan of Treatment Not on file documented as of this encounter Procedures Procedure Name Priority Date/Time Associated Diagnosis Comments US INGUINAL RIGHT RAD - Routine (most inpatients and all outpatients) 02/17/2024 1:23 PM CDT Pain Right Lower Quadrant documented in this encounter Results * US Inguinal Right (02/17/2024 1:23 [...] Goodrich II, M.D. IMG US PROCEDUR ES documented in this encounter Visit Diagnoses Diagnosis Pain Right Lower Quadrant documented in this encounter
--- OUTSIDE RECORDS SUMMARY | 2024-03-05 12:43 | XMS_ITS | Clinical Summary ---
Author Organization [facility] Address [place], [place] [address] Care Team Providers Care Home Maker Name Role Phone Merle Gordon ENROBER TENDER Primary Care Provider [phone] Active Problems Problem Noted Date Diagnosed Date Adenomatous colon polyp 04/12/2013 Overview (04/12/2013): Colonoscopy 04/2013 polyp repeat in 5 years Social History Tobacco Use Types Packs/Day Years Used Date Smoking Tobacco: Never Assessed Sex and Gender Information Value Date Recorded Sex Assigned at Not on file Gender Identity Not on file Sexual Orientation Not on file Obstetrics History Plan of Treatment Health Maintenance Due Date Last Done Comments Tdap 1956 Depression screening for age 12+ 1957 BMI (ht and wt on same day) for age 18+ 10/02/1963 Hepatitis C screening for age 18-79 10/02/1963 Tetanus booster 1965 Zoster (shingles) series for age 50+ (1 of 2) 10/01/18 96 DEXA/DXA scan for age 65+ 2010 Pneumococcal series for age 65+ (1 of 1 - PCV) 011 RSV vaccine for adults or pr egnancy (1 - 1-dose 75+ series) 2020 COVID-19 vaccine series (2 - season) 4 03/27/2023 Influenza for age 65+ 02/01/2024 Insurance Payer Benefit Plan / Group Subscriber ID Effective Dates Phone Address Type MEDICARE PART A - HB USE ONLY MEDICARE RR PART A HB ONLY [id number] 2010-Presen t [address] [place] [address] MEDICARE PART B - HB USE ONLY MEDICARE PART B HB ONLY [id number] 2010-Presen t ATTN: CLAIMS [address] [place] [address] BLUE CROSS MR BLUE CROSS [place] BLUE MR PB ONLY [id number] 2016-Loreta dobbins [address] [address] [place] [address] Care Teams Home Maker Relationship Specialty Start Date End Date Merle Gordon ENROBER TENDER PCP - General Emergency Medicine 12/16/16
--- OUTSIDE RECORDS SUMMARY | 2024-03-05 12:43 | XMS_ITS | Encounter Summary ---
Author Organization [facility] er Address [address] [place] [address] Care Team Providers Care Grip Name Role Phone Rustam Goodrich MD Primary Care Provider [phone] Reason for Visit * Reason Onset Date Comments VACCINATION TDAP 02/17/2024 Encounter Details Date Type Department Care Team (Late st Contact Info) Description 02/17/2024 Telephone [facility] [address] [address] Rustam Goodrich MD 1705 [facility] 20 [place] [address] VACCINATION TDAP Social History Tobacco Use Types Packs/Day Years [...] How often do you attend chur or lutheran services? More than 4 times per year 10/23/2023 Do you belong to any clubs o r organizations such as gnosticism groups, unions, fraternal or athletic groups, or [...] Date Recorded PHQ-9 Total Score 0 02/05/2024 [facility] of Occupat ional Health - Occupational Stress [...] place to sleep or slept in a care home (including now)? No 03/26/2023 Housing Stability Vital Sign Answer Rao e Recorded In the last 12 months, was t here a time when you were not able to pay the mortgage or rent on time? No 10/23/2023 In the past 12 months, how m any times have you moved where you were living? 1 10/23/2023 At any time in the past 12 m [facility], were you homeless or living in a care home (including now)? No 10/23/2023 Education Answer Date [...] encounter Miscellaneous Notes * Telephone Encounter - Elis Garcia LPN - 02/17/2024 3:40 PM CDT Noted, this will update in time. * Telephone Encounter - Jojo Carney - 02/17/2024 3:08 PM CDT Received TDAP vaccination at / on 02.05.24. She was attempting to enter this info through [facility] it would show in her chart and could not. Informed that it could be awhile until this appears inher medical record, but that it would eventually. If questions, . documented in this encounter Plan of Treatment Upcoming Encounters Date Type Department Care Team (Late st Contact Info) Description 03/18/2024 11:00 AM CDT Appointment [facility] [address] [address] 04/12/2024 1:00 PM WIRE FRAME DIPPER Telemedicine [facility] 52 Sleep Medicine 4303 [facility] 52 [place], [place] [id number] Stephanie Nicholson, COMMERCIAL INTERNSHIP, PIGMENT PUSHER 4303 [facility] 52 [place] [address] documented as of this encounter Visit Diagnoses Not on filedocumented in this encounter Care Teams Grip Relationship Specialty Start Date End Date Rustam Goodrich MD 1705 [facility] 20 [place] [address] PCP - General 03/20/23 documented as of this encounter
--- OUTSIDE RECORDS SUMMARY | 2024-03-05 12:43 | XMS_ITS | Encounter Summary ---
Author Organization [facility] er Address [address] [place] [address] Care Team Providers Care Toggle Press Operator Name Role Phone Rustam Goodrich MD Primary Care Provider Reason for Referral * Consultation (Routine) - Authorized Specialty Diagnoses / Procedures Referred By Mike t Referred To Contact Diagnoses Right lower quadrant pain Rustam Goodrich MD 1705 [facility] 20 [place] [address] [address] Referral ID Status Reason Start Date Expiration Date V isits Requested Visits Authorized [id number] Authorized 02/05/2024 02/05/2025 1 1 Reason for Visit * Reason Comments Back Pain Encounter Details Date Type Department Care Team (Late st Contact Info) Description 02/05/2024 11:20 AM CDT Office Visit [facility] [address] [address] [place] [address] Rustam Goodrich MD [address] [address] Right lower quadrant pain (Primary Dx); Chronic SI joint pain; Chronic right hip pain Social History Tobacco Use Types Packs/Day Years [...] How often do you attend chur or rastafari services? More than 4 times per year 10/23/2023 Do you belong to any clubs o r organizations such as amish groups, unions, fraternal or athletic groups, or [...] PHQ-9 Total Score 0 02/05/2024 [facility] - Occupational Stress Questionnaire Answer Date Recorded [...] place to sleep or slept in a custodial (including now)? No 03/26/2023 Housing Stability Vital Sign Answer Rao e Recorded In the last 12 months, was t here a time when you were not able to pay the mortgage or rent on time? No 10/23/2023 In the past 12 months, how m any times have you moved where you were living? 1 10/23/2023 At any time in the past 12 m [facility], were you homeless or living in a custodial (including now)? No 10/23/2023 Education Answer Date Recorded What is the highest level of school you have completed or the highest degree you have received? High school graduate 01/08/2019 Sex and Gender Information Value Date Recorded Sex Assigned at Female 10/10/2020 11:09 AM CDT Gender Identity Female 10/10/2020 11:09 AM CDT Sexual Orientation Not on file documented as of this encounter Last Filed Vital Signs Vital Sign Reading [...] Mass Index 31.56 02/05/2024 11:16 AM CDT documented in this encounter Progress Notes * Rustam Goodrich MD - 02/05/2024 11:20 AM CDT Philly Kerr is a 78 y.o. female here for Chief Complaint Patient presents with Back Pain History of Present Illness The patient presents for evaluation of back problems. She reports persistent pain in her right lower back, buttocks, and groin area. This pain has been constant throughout the day and has been present for a significant period. The pain intensifies with prolonged standing and walking, and even turning in bed causes discomfort. She occasionally takes Tylenol PM and Advil for pain relief. She does not experience any numbness or tingling when standing. She hoped the pain would resolve after her gallbladder removal, but the surgery did not alleviate her back pain. During her postoperative check-up, she was examined for a hernia, but no hernia was found but surgeon said to come back if the pain got worse. Her bowel movements have been irregular since the surgery, with instances of diarrhea and constipation. She has lost 10 pounds and is making dietary changes to manage her blood pressure without medication. 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 She has received an injection in her right knee but has not undergone any hip surgeries. She does not have fevers or chills. ROS: ROS done as noted in HPI. Objective Vitals: 02/05/24 1116 02/05/24 1118 BP: 140/71 124/78 BP Location: Right arm Left arm Patient Position: Sitting Sitting BP Cuff Size: Large adult Large adult Pulse: 74 Resp: 16 Temp: 36.3 ??C (97.3 ??F) TempSrc: Temporal SpO2: 95% Weight: 73.3 kg (161 lb 9.6 oz) Height: 1.524 m (5') Physical Exam Physical Exam MSK: Right hip: negative stinchfield and log roll test. Pain with hip joint palpation and SI joint palpation. Pain with LIZA maneuver. No pain with FADIR maneuver. No pain with resisted external rotation. Normal RLE strength 5/5. Negative straight leg raise bilaterally. Abd: right lower quadrant femoral area tenderness possible fascial defect without bulging but is tender about 2 x 3 cm area possible defect Results Imaging X-ray of hip in 2017 showed mild degenerative spurring on both hips Assessment & Plan 1. Back pain. The patient's back pain may be related to her sacroiliac (SI) joint or hip. She reports pain when turning in bed, standing for long periods, and during certain movements. 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 An updated x-ray of the hip will be ordered to assess the progression of arthritis. Physical therapy will be considered based on the x-ray results.If severe arthritis is detected, a referral to orthopedics will be made. 2. Suspected hernia. The patient experiences pain in the groin area, which may be indicative of a hernia. An ultrasound will be performed to rule out the presence of a hernia. If a hernia is detected, she will be referred back to the surgeon. 3. Osteopenia. She is due for a DEXA scan, with the last one conducted in 2019 indicating osteopenia. We will get this updated for her at some point. Diagnosis Plan 1. Right lower quadrant pain Ambulatory External Referral [facility]; [place]; Radiology 2. Chronic SI joint pain X-ray hip 2-3 views right with pelvis X-ray hip 2-3 views right with pelvis 3. Chronic right hip pain X-ray hip 2-3 views right with pelvis X-ray hip 2-3 views right with pelvis No follow-ups on file. documented in this encounter Plan of Treatment Upcoming Encounters Date Type Department Care Team (Late st Contact Info) Description 03/18/2024 11:00 AM CDT Appointment [place] [facility] [address] [address] 04/12/2024 1:00 PM SOAKER MEAT Telemedicine [facility] 52 Sleep Medicine 4303 [facility] 52 [place] [address] Stephanie Nicholson, PROGRAM SUPPORT SPECIALIST, FRAME EXPANDER [address] [address] Scheduled Orders Name Type Priority Associated Diagnoses Orde r Schedule X-ray hip 2-3 views right with pelvis Imaging Today Chronic SI joint pain Chronic right hip pain Expected: 02/05/2024, Expires: 02/04/2025 Scheduled Referrals Name Type Priority Associated Diagnoses Order Schedule Ambulatory External Referral [facility]; [place]; Radiology Outpatient Referral Routine Right lower quadrant pain Ordered: 02/05/2024 documented as of this encounter Visit Diagnoses Diagnosis Right lower quadrant pain- Primary Chronic SI joint pain Disorders of sacrum Chronic right hip pain documented in this encounter Care Teams Toggle Press Operator Relationship Specialty Start Date End Date Rustam Goodrich MD [address] [address] PCP - General 03/20/23 documented as of this encounter
--- OUTSIDE RECORDS SUMMARY | 2024-03-05 12:43 | XMS_ITS | Encounter Summary ---
Author Organization [place] Address [facility] [place] [address] Care Team Providers Care Supervisory Examiner Name Role Phone Merle Gordon NP Primary Care Provider Loreto Johnson PA-C Unavailable [phone] Loreto Johnson PA-C Unavailable [phone] Encounter Details Date Type Department Care Team (Late st Contact Info) Description 12/30/2018 [facility], Ambulatory 9 [place] [address] Daniella Malave CMA Social History Tobacco Use Types Packs/Day Years Used Date Smoking Tobacco: Never Smokeless Tobacco: Never Alcohol Use Standard Drinks/Week Comments Not Asked 0 (1 standard drink = 0.6 oz pur e alcohol) PHQ-2 Answer Date Recorded PHQ-2 Score 0 06/10/2018 Sex and Gender Information Value Date Recorded Sex Assigned at Not on file Gender Identity Not on file Sexual Orientation Not on file documented as of this encounter Plan of Treatment Not on file documented as of this encounter Visit Diagnoses Not on filedocumented in this encounter Care Teams Supervisory Examiner Relationship Specialty Start Date End Date Merle Gordon NP PCP - General 06/05/15 Loreto Johnson PA-C [address] [place] [address] Assigned Pediatric Specialist Provider 03/24/20 07/02/20 oLreto Johnson PA-C [address] [place] [address] Assigned Surgical Provider 08/16/20 documented as of this encounter
--- OUTSIDE RECORDS SUMMARY | 2024-03-05 12:44 | XMS_ITS | Encounter Summary ---
Author Organization [facility] er Address [address] [place] [address] Care Team Providers Care Tourist Camp Attendant Name Role Phone Rustam Goodrich MD Primary Care Provider Reason for Visit * Reason Onset Date Comments re: sleep med WatchPat 11/26/2023 Encounter Details Date Type Department Care Team (Late st Contact Info) Description 11/26/2023 Telephone [place] [address] [address] Rustam Goodrich MD 1705 [facility] 20 [place] [address] re: sleep med WatchPat Social History Tobacco Use Types Packs/Day Years [...] How often do you attend chur or protestant services? More than 4 times per year 10/23/2023 Do you belong to any clubs o r organizations such as anglican groups, unions, fraternal or athletic groups, or [...] Date Recorded PHQ-9 Total Score 0 11/12/2023 [facility] of Occupat ional Health - Occupational Stress [...] place to sleep or slept in a [place] health care facility (including now)? No 03/26/2023 Housing Stability Vital Sign Answer Rao e Recorded In the last 12 months, was t here a time when you were not able to pay the mortgage or rent on time? No 10/23/2023 In the past 12 months, how m any times have you moved where you were living? 1 10/23/2023 At any time in the past 12 m [facility], were you homeless or living in a [place] health care facility (including now)? No 10/23/2023 Education Answer Date [...] encounter Miscellaneous Notes * Telephone Encounter - CarneyJojo - 12/01/2023 11:09 AM CDT Picked up Sleep Medicine information that was sent to [facility]. Signed paperwork which was faxed to Sleep Medicine and also sent through interoffice to them on 12.01.23. * Telephone Encounter - Sienna Richardson - 11/26/2023 4:09 PM CDT I called pt to let her know that her WatchPat from Sleep Med arrived at the [facility]. Philly said that she has funerals 3 days this week and probably won't be able to pick this up until Friday. Fyi... Thanks. documented in this encounter Plan of Treatment Upcoming Encounters Date Type Department Care Team (Late st Contact Info) Description 03/18/2024 11:00 AM CDT Appointment [facility] [facility] [address] [address] 04/12/2024 1:00 PM HEAD OF GEOGRAPHY Telemedicine [facility] 52 Sleep Medicine 4303 [facility] 52 [place] [address] Stephanie Nicholson, SHOEMAKING CUTTER, DENTAL TECHNOLOGIST [address] [address] documented as of this encounter Visit Diagnoses Not on filedocumented in this encounter Care Teams Tourist Camp Attendant Relationship Specialty Start Date End Date Rustam Goodrich MD 1705 [facility] 20 [place] [address] PCP - General 03/20/23 documented as of this encounter
--- OUTSIDE RECORDS SUMMARY | 2024-03-05 12:44 | XMS_ITS | Encounter Summary ---
Author Organization [facility] er Address [address] [place] [address] Care Team Providers Care Case Therapist Name Role Phone Rustam Goodrich MD Primary Care Provider Encounter Details Date Type Department Care Team (Latest Contact Info) Description 12/01/2023 3:20 PM CDT Ancillary Procedure [facility] Sleep [address] [place] [address] PATRICA (obstructive sleep apnea) (Primary Dx) Social History Tobacco Use Types Packs/Day Years [...] How often do you attend chur or cheondoism services? More than 4 times per year 10/23/2023 Do you belong to any clubs o r organizations such as moravian groups, unions, fraternal or athletic groups, or [...] Date Recorded PHQ-9 Total Score 0 11/12/2023 [facility] of Occupat ional Health - Occupational [...] place to sleep or slept in a residential (including now)? No 03/26/2023 Housing Stability Vital Sign Answer Rao e Recorded In the last 12 months, was t here a time when you were not able to pay the mortgage or rent on time? No 10/23/2023 In the past 12 months, how m any times have you moved where you were living? 1 10/23/2023 At any time in the past 12 m [facility], were you homeless or living in a residential (including now)? No 10/23/2023 Education Answer Date Recorded What is the highest level of school you have completed or the highest degree you have received? High school graduate 01/08/2019 Sex and Gender Information Value Date Recorded Sex Assigned at Female 10/10/2020 11:09 AM CDT Gender Identity Female 10/10/2020 11:09 AM CDT Sexual Orientation Not on file documented as of this encounter Progress Notes * Chad Givens MD - 12/01/2023 3:20 PM CDT Sleep study interpretation completed; see scanned documentation. documented in this encounter Plan of Treatment Upcoming Encounters Date Type Department Care Team (Late st Contact Info) Description 03/18/2024 11:00 AM CDT Appointment [facility] [address] [address] 04/12/2024 1:00 PM SECURITY AND COMPLIANCE PROJECT MANAGER Telemedicine [facility] Sleep Medicine 4303 [facility] 52 [place], [place] [phone] Stephanie Nicholson, LEAD SOFTWARE DEVELOPMENT ENGINEER, CORRECTIONAL OFFICER 4303 [facility] 52 [place], [place] [id number] documented as of this encounter Visit Diagnoses Diagnosis PATRICA (obstructive sleep apnea)- Primary Obstructive sleep apnea (adult) (pediatric) documented in this encounter Care Teams Case Therapist Relationship Specialty Start Date End Date Rustam Goodrich MD 1705 [facility] 20 [place] [address] PCP - General 03/20/23 documented as of this encounter
--- OUTSIDE RECORDS SUMMARY | 2024-03-05 12:44 | XMS_ITS | Encounter Summary ---
Author Organization [facility] er Address [address] [place] [address] Care Team Providers Care Rubber Goods Tester Water Name Role Phone Rustam Goodrich MD Primary Care Provider Encounter Details Date Type Department Care Team (Late st Contact Info) Description 11/13/2023 Telephone [facility] Sleep Medicine [address] [place] [address] Chad Givens MD [address] [address] Social History Tobacco Use Types Packs/Day Years [...] any clubs o r organizations such as cheondoism groups, unions, fraternal or athletic groups, or [...] Date Recorded PHQ-9 Total Score 0 11/12/2023 [facility] of Occupat ional Health - Occupational Stress [...] place to sleep or slept in a snf (including now)? No 03/26/2023 Housing Stability Vital Sign Answer Rao e Recorded In the last 12 months, was t here a time when you were not able to pay the mortgage or rent on time? No 10/23/2023 In the past 12 months, how m any times have you moved where you were living? 1 10/23/2023 At any time in the past 12 m [facility], were you homeless or living in a snf (including now)? No 10/23/2023 Education Answer Date [...] encounter Miscellaneous Notes * Telephone Encounter - Chad Givens MD - 11/13/2023 2:07 PM CDT I have reviewed the patient's chart, the order is appropriate and no contraindication for WatchPAT test. * Telephone Encounter - Uyen Marin - 11/13/2023 9:[address] Givens, Please review the WatchPat order per department protocol. documented in this encounter Plan of Treatment Upcoming Encounters Date Type Department Care Team (Late st Contact Info) Description 03/18/2024 11:00 AM CDT Appointment [facility] [address] [address] 04/12/2024 1:00 PM INSPECTOR FINAL ASSEMBLY ELECTRICAL Telemedicine [facility] Sleep Medicine 4303 [facility] 52 [place] [address] Stephanie Nicholson, FELT CARBONIZER, LEVEL VIAL INSPECTOR 4303 [facility] 52 [place] [address] documented as of this encounter Visit Diagnoses Not on filedocumented in this encounter Care Teams Rubber Goods Tester Water Relationship Specialty Start Date End Date Rustam Goodrich MD 1705 [facility] 20 [place] [address] PCP - General 03/20/23 documented as of this encounter
--- NOTE | 2024-03-05 13:00 | CRLHL7_ITS ---
For Patients: As a result of the Century Cures Act, medical imaging exams and procedure reports are released immediately into your electronic medical record. You may view this report before your referring provider. If you have questions, please contact your health care provider. BILATERAL SCREENING MAMMOGRAM WITH COMPUTER-AIDED DETECTION AND TOMOSYNTHESIS TECHNIQUE: CC and MLO views were obtained. These mammographic images have been obtained using full-field digital technique. These mammographic images were interpreted with the benefit of computer-aided detection. Breast tomosynthesis was used in this interpretation. COMPARISON FILM: 03/04/2023, 02/26/2022, 01/05/2021. FINDINGS: There are scattered areas of fibroglandular density. IMPRESSION: There is no radiographic evidence for malignancy. ASSESSMENT: BI-RADS Category 2: Benign RECOMMENDATION: Routine screening mammogram in 1 year. A lay language report of this examination will be provided to the patient. PARAM SAAB M.D. Diagnostic Radiologist [email or web address] Transcribed: 12:[address]/Dictated by: Param Saab MD @ 03/08/2024 10:36:00 AM (Electronically Signed)
== END 2024-03-05 12:41 | disposition home or self-care (01) ==
LOC: MAMMO 12:41
PROVIDERS: PCP Family Medicine; Visit Provider Family Medicine
DX: Z12.31 Encounter for screening mammogram for malignant neoplasm of breast (principal)
CPT/HCPCS: 77063; 77067

== ENCOUNTER 2024-03-29 08:57 | Outpatient (CLI) | payer MEDICARE, BC, SELFPAY ==
--- OUTSIDE RECORDS SUMMARY | 2024-03-29 09:02 | XMS_ITS ---
Author Organization [facility] Address [address] [place] [address] Care Team Providers Care Cloth Piecer Name Role Phone Unavailable Unavailable Unavailable Surgery Details Not on file Complications Check Surgery Details section. Procedure Estimated Blood Loss Check Surgery Details section. Procedure Findings Check Surgery Details section. Procedure Specimens Taken Check Surgery Details section.
--- OUTSIDE RECORDS SUMMARY | 2024-03-29 09:02 | XMS_ITS | Referral Summary ---
Author Organization [facility] Address [address] [place] [address] Care Team Providers Care Blower Blast Furnace Name Role Phone Unavailable Primary Care Provider Unavailabl e Source Comments Patient records contain information from all sites at [facility]. For routine questions regarding patient records, call [phone] during business hours, M-F 8:00 AM - 5:00 PM Central Time. Record requests for emergency care only can be directed to [phone] at any time.[facility] Encounters Date Type Department Care Team Description 02/17/2024 12:51 PM CDT - 02/17/2024 11:59 PM CDT Hospital Encounter Department of Radiology in [address] [place] [address] Rustam Goodrich II, M.D. Pain Right Lower Quadrant Discharge Disposition: Home or Self Care from Last 3 Months Allergies No known active allergies Medications cholecalciferol (VITAMIN D3) 50 mcg (2,000 Unit) tablet Take 1 tablet by mouth daily. Active losartan (COZAAR) 50 mg tablet Take 50 mg by mouth daily. 3 Active metroNIDAZOLE (METROCREAM) 0.75 % cream Apply 1 Application topically 2 (two) times a day. 4 Active Immunizations Name Administration Dates Next Due Influenza, Unspecified 03/19/2013,06/04/2012 Social History Tobacco Use Types Packs/Day Years Used Date Smoking Tobacco: Never Tobacco Cessation:Counseling Given: Not Answered Nutrition Answer Date Recorded Nutrition: EVOO Fat Source 13 12/27 Nutrition: Servings of Fruits/Vegetables per Day Not on file 12/28/2019 Dental Answer Date Recorded Dental: Regular Dentist Unknown 07/26/19 21 Comments Unknown Sex and Gender Information Value Date Recorded Sex Assigned at Not on file Legal Sex Female 10:26 AM BETA TESTER Gender Identity Not on file Sexual Orientation [...] OUTSIDE MG MAMMOGRAM Routine 08/01/2008 10:52 AM BETA TESTER from Last 3 Months or Most Recently [...] hernia. 2. No fluid collection or adenopathy. us Rustam Goodrich II, M.D. IMG US PROCEDURES Final Result * (ABNORMAL) Comprehensive Metabolic Panel (10/22/2023 3:01 [...] CDT Renetta Godinez P.A.-C., P.A., M.S. LAB BLOOD ADD-O N Final Result [facility] [address] [place] [address], [facility] [place] [address] * Outside MG Mammogram (08/01/2008 10:52 AM BETA TESTER) 08/01/2008 10:5 2 AM BETA TESTER Addenda Addendum by ProviderSuzette M.D. on 08/01/2008 10:52 AM BETA TESTER ODM^^^MCR Digitized Mammogram 08/01/2008 10:52:54 us Historical Provider IMG BI PROCEDURES Final Resu lt [facility] [address] [place] [address] from Last 3 Months or Most Recently Relevant to Health Maintenance Insurance [facility] MEDICARE
--- OUTSIDE RECORDS SUMMARY | 2024-03-29 09:02 | XMS_ITS | Clinical Summary ---
Author Organization [facility] Address [place], [place] [address] Care Team Providers Care Can Repairer Name Role Phone Merle Gordon HAND MITER OPERATOR Primary Care Provider [phone] Active Problems Problem Noted Date Diagnosed Date [...] 4 03/27/2023 Influenza for age 65+ 02/01/2024 Care Teams Can Repairer Relationship Specialty Start Date End Date Merle Gordon HAND MITER OPERATOR PCP - General Emergency Medicine 12/16/16
--- OUTSIDE RECORDS SUMMARY | 2024-03-29 09:02 | XMS_ITS | Encounter Summary ---
Author Organization [facility] Address [address] [place] [address] Care Team Providers Care Quarryman Name Role Phone Unavailable Primary Care Provider Unavailabl e Reason for Referral * Outpatient (Routine) - Closed Specialty Diagnoses / Procedures Referred By Mike dobbins Referred To Contact Diagnoses Pain Right Lower Quadrant Procedures US Inguinal Right Rustam Goodrich II, M.D. Phone: tel: fax: [facility] Referral ID Status Reason Start Date Expiration Date Visits Re quested Visits Authorized [id number] Closed 02/06/2024 02/05/2025 1 1 Reason for Visit * Outpatient (Routine) - Closed Specialty Diagnoses / Procedures Referred By Mike dobbins Referred To Contact Diagnoses Pain Right Lower Quadrant Procedures US Inguinal Right Rustam Goodrich II, M.D. Phone: tel: fax: [facility] Referral ID Status Reason Start Date Expiration Date Visits Re quested Visits Authorized [id number] Closed 02/06/2024 02/05/2025 1 1 Encounter Details Date Type Department Care Team (Latest Contact Info) Description 02/17/2024 12:51 PM CDT - 02/17/2024 11:59 PM CDT Hospital Encounter Department of Radiology in [address] [place] [address] Rustam Goodrich II, M.D. [address] [place], [place] [address] [place] [phone] Pain Right Lower Quadrant Discharge Disposition: Home [...] on file Legal Sex Female 10:26 AM GROUP HOME COUNSELOR Gender Identity Not on file Sexual Orientation Not on file documented as of this encounter Medications at Time of Discharge cholecalciferol (VITAMIN D3) 50 mcg (2,000 Unit) [...] or abnormal morphology lymph nodes. Procedure Note Slat, Param, M.D. - 02/17/2024 EXAM: US INGUINAL RIGHT [...] II, M.D. IMG US PROCEDURES Final Result documented in this encounter Visit Diagnoses Diagnosis Pain Right Lower Quadrant documented in this encounter
--- OUTSIDE RECORDS SUMMARY | 2024-03-29 09:02 | XMS_ITS | Clinical Summary ---
Author Organization [facility] Address [address] [place] [address]. [place] [address] Care Team Providers Care Software Solutions Architect Name Role Phone Merle Gordon NP Primary Care Provider Allergies No known active allergies Medications metroNIDAZOLE (METROCREAM) 0.75 % creamIndication s:Rosacea Apply topically 2 times daily Apply on cheeks and nose. 45 g 11 4 Active Additional Information Patient not taking.Reported on 01/23/2018 Calcium-Magnesi um-Vitamin D (CALCIUM 500 PO) Take 1,000 mg by mouth Active vitamin D3 (CHOLECALCIFERO L) 2000 units (50 mcg) tablet Take 1 tablet by mouth daily Active Active Problems Problem Noted Date Diagnosed Date BCC (basal cell carcinoma), face 05/05/2012 Chronic skin ulcer 12/10/2011 Overview (04/03/2015): Problem list name updated by automated process. [...] School Help Needed Not on file 03/09 Comments No Sex and Gender Information Value Date Recorded Sex Assigned at Not on file Legal Sex Female 4:14 AM FOREST SCIENTIST Gender Identity Not on file Sexual Orientation [...] - Plan of Treatment Not on file Insurance MEDICARE [facility] MEDICARE [place] Care Teams Software Solutions Architect Relationship Specialty Start Date End Date Merle Gordon NP PCP - General 06/05/15
--- OUTSIDE RECORDS SUMMARY | 2024-03-29 09:02 | XMS_ITS | Clinical Summary ---
Author Organization [facility] Address [address] [place] [address] Care Team Providers Care Manager Of Organizational Development Name Role Phone Unavailable Primary Care Provider Unavailabl e Source Comments Patient records contain information from all sites at [facility]. For routine questions regarding patient records, call [phone] during business hours, M-F 8:00 AM - 5:00 PM Central Time. Record requests for emergency care only can be directed to [phone] at any time.[facility] Allergies No known active allergies Medications cholecalciferol (VITAMIN D3) 50 mcg (2,000 Unit) tablet Take 1 tablet by mouth daily. Active losartan (COZAAR) 50 mg tablet Take 50 mg by mouth daily. 3 Active metroNIDAZOLE (METROCREAM) 0.75 % cream Apply 1 Application topically 2 (two) times a day. 4 Active Encounters Date Type Department Care Team Description 02/17/2024 12:51 PM CDT - 02/17/2024 11:59 PM CDT Hospital Encounter Department of Radiology in [address] [place] [address] Rustam Goodrich II, M.D. Pain Right Lower [...] on file Legal Sex Female 10:26 AM ACTIVITY AID Gender Identity Not on file Sexual Orientation [...] 08/01/2008, 07/02/2007 Pneumococcal vaccine (65+ years) Completed 08/17/19, 07/22/2011 Zoster Vaccines Completed 03/01/2022, 11/01, 08/05/2011 CT Colonography Discontinued Cologuard Discontinued FIT Discontinued Procedures Procedure Name Priority Date/Time Associated Diagnosis Comments US INGUINAL RIGHT RAD - Routine (most inpatients and all outpatients) 02/17/2024 1:23 PM CDT Pain Right Lower Quadrant COMPREHENSIVE METABOLIC PANEL, S/P STAT 10/22/2023 3:01 AM CDT OUTSIDE MG MAMMOGRAM Routine 08/01/2008 10:52 AM ACTIVITY AID from Last 3 Months or Most Recently [...] collection or adenopathy. Rustam Goodrich II, M.D. [facility] US PROCEDURES Final Result * (ABNORMAL) Comprehensive [...] M.S. LAB BLOOD ADD-O N Final Result [facility] [address] [place] [address], [facility] CN[facility] in [address] [address] * Outside MG Mammogram (08/01/2008 10:52 AM ACTIVITY AID) 08/01/2008 10:5 2 AM ACTIVITY AID Addenda Addendum by ProviderSuzette M.D. on 08/01/2008 10:52 AM ACTIVITY AID ODM^^^MCR Digitized Mammogram 08/01/2008 10:52:54 Historical Provider IMG BI PROCEDURES Final Resu lt Performing Organization Address City[facility] Co de Phone Number [facility] [address] [place] [address] from Last 3 Months or Most Recently Relevant to Health Maintenance Insurance [facility] MEDICARE
--- OUTSIDE RECORDS SUMMARY | 2024-03-29 09:03 | XMS_ITS | Encounter Summary ---
Author Organization [facility] er Address [address] [place] [address] Care Team Providers Care Regulation Supervisor Name Role Phone Rustam Goodrich MD Primary Care Provider [phone] Reason for Visit * Reason Onset Date Comments Follow-up Imaging Read 03/22/2024 Encounter Details Date Type Department Care Team (Late st Contact Info) Description 03/22/2024 Telephone [place] [address] [address] Rustam Goodrich MD 1705 [facility] 20 [place] [address] Follow-up Imaging Read Social History Tobacco Use Types Packs/Day Years [...] How often do you attend chur or denominational services? More than 4 times per year 10/23/2023 Do you belong to any clubs o r organizations such as scientology groups, unions, fraternal or athletic groups, or [...] Date Recorded PHQ-9 Total Score 0 02/05/2024 [facility] [place] of Occupat ional Health - Occupational Stress [...] place to sleep or slept in a long-term (including now)? No 03/26/2023 Housing Stability Vital [...] time in the past 12 m [facility], were you homeless or living in a long-term (including now)? No 10/23/2023 Education Answer Date [...] encounter Miscellaneous Notes * Telephone Encounter - Lakeisha Winkler RN - 03/22/2024 12:31 PM CDT Patient contacted, questions were answered. Patient will present to [place] to have MRI done as scheduled. * Telephone Encounter - Alyssa Isbell - 03/22/2024 10:26 AM CDT Patient would like to speak with Provider about MRI. She has a couple Questions documented in this encounter Plan of Treatment Upcoming Encounters Date Type Department Care Team (Late st Contact Info) Description 04/12/2024 1:00 PM FRIED CAKE MAKER Telemedicine [facility] 52 Sleep Medicine [address] [place] [phone] Stephanie Nicholson, PRODUCTION CONTROL PEGBOARD CLERK, BLOOD BANK CALENDAR CONTROL CLERK 4303 [facility] 52 [place] [address] documented as of this encounter Visit Diagnoses Not on filedocumented in this encounter Care Teams Regulation Supervisor Relationship Specialty Start Date End Date Rustam Goodrich MD [address] [place] [address] PCP - General 03/20/23 documented as of this encounter
--- OUTSIDE RECORDS SUMMARY | 2024-03-29 09:03 | XMS_ITS | Encounter Summary ---
Author Organization [facility] Address [address] [place] [address]. [place] [address] Care Team Providers Care Senior Radiation Therapist Name Role Phone Merle Gordon NP Primary Care Provider Loreto Johnson PA-C Unavailable [phone] Loreto Johnson PA-C Unavailable [phone] Encounter Details Date Type Department Care Team (Late st Contact Info) Description 12/30/2018 My[facility] Medical Advice [facility] Care Coordination, Ambulatory [address] [place] [address] Daniella Malave CMA Social History Tobacco Use Types Packs/Day Years Used Date Smoking Tobacco: Never Smokeless Tobacco: Never Alcohol Use Standard Drinks/Week Comments Not Asked 0 (1 standard drink = 0.6 oz pur e alcohol) PHQ-2 Answer Date Recorded PHQ-2 Score 0 06/10/2018 Comments No Sex and Gender Information Value Date Recorded Sex Assigned at Not on file Legal Sex Female 4:14 AM VERIFICATION REP Gender Identity Not on file Sexual Orientation Not on file documented as of this encounter Plan of Treatment Not on file documented as of this encounter Visit Diagnoses Not on filedocumented in this encounter Care Teams Senior Radiation Therapist Relationship Specialty Start Date End Date Merle Gordon NP PCP - General 06/05/15 Loreto Johnson PA-C [address] [place] [address] Assigned Pediatric Specialist Provider 03/24/20 07/02/20 Loreto Johnson PA-C [address] [place] [address] Assigned Surgical Provider 08/16/20 documented as of this encounter
--- OUTSIDE RECORDS SUMMARY | 2024-03-29 09:03 | XMS_ITS | Referral Summary ---
Author Organization [facility] Address [address] [place] [address]. [place] [address] Care Team Providers Care Shuttlecock Feather Trimmer Name Role Phone Merle Gordon NP Primary [...] on file Legal Sex Female 4:14 AM FRENCH BINDING FOLDER Gender Identity Not on file Sexual Orientation [...] of Treatment Not on file Insurance MEDICARE [facility] MEDICARE [facility] [place] BLUE Care Teams Shuttlecock Feather Trimmer Relationship Specialty Start Date End Date Merle Gordon NP PCP - General 06/05/15
--- OUTSIDE RECORDS SUMMARY | 2024-03-29 09:03 | XMS_ITS | Encounter Summary ---
Author Organization [facility] er Address [address] [place] [address] Care Team Providers Care Journeyman Welder Name Role Phone Rustam Goodrich MD Primary Care Provider [phone] Reason for Referral * Consultation (Routine) - Authorized Specialty Diagnoses / Procedures Referred By Contac t Referred To Contact Diagnoses Chronic right-sided low back pain without sciatica Lumbar spondylosis Rustam Goodrich MD [address] [address] [address] Referral ID Status Reason Start Date Expiration Date V isits Requested Visits Authorized [id number] Authorized 03/18/2024 03/19/2025 1 1 Reason for Visit * Reason Onset Date Comments MRI Referral 03/18/2024 Encounter Details Date Type Department Care Team (Late st Contact Info) Description 03/18/2024 Telephone [place] [address] [address] Rustam Goodrich MD 1705 [facility] 20 [place] [address] MRI Referral Social History Tobacco Use Types Packs/Day Years [...] 10/23/2023 How often do you attend chur ch or oriental orthodox services? More than 4 times per year 10/23/2023 Do you belong to any clubs o r organizations such as nondenominational groups, unions, fraternal or athletic groups, or [...] Date Recorded PHQ-9 Total Score 0 02/05/2024 [facility] of Occupat ional [...] place to sleep or slept in a intermediate (including now)? No 03/26/2023 Housing Stability Vital Sign Answer Rao e Recorded In the last 12 months, was t here a time when you were not able to pay the mortgage or rent on time? No 10/23/2023 In the past 12 months, how m any times have you moved where you were living? 1 10/23/2023 At any time in the past 12 m [facility], were you homeless or living in a intermediate (including now)? No 10/23/2023 Education Answer Date [...] Telephone Encounter - Dayanara Rodríguez RN - 03/19/2024 9:19 AM CDT Noted. * Telephone Encounter - Keena Kiran - 03/19/2024 7:52 AM CDT Faxed referral to [facility] - will inform patient that this has been sent along with a prescription. * Telephone Encounter - Rustam Goodrich MD - 03/18/2024 4:54 PM CDT Great. I sent Rx and signed referral. Diagnosis Plan 1. Chronic right-sided low back pain without sciatica Ambulatory External Referral [facility]; Radiology 2. 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 Referral Pended * Telephone Encounter - Keena Kiran - 03/18/2024 1:52 PM CDT Patient is requesting to have a referral for an MRI sent to [facility] in [place]. She's also wondering if Dr. Goodrich could prescribe something for her to take the day of for anxiety,as she struggles in tight spaces. MRI Referral can be faxed to [phone] Prescription can be sent to [facility] in [place]. documented in this encounter Plan of Treatment Upcoming Encounters Date Type Department Care Team (Late st Contact Info) Description 04/12/2024 1:00 PM ACTIVATED SLUDGE OPERATOR Telemedicine [facility] 52 Sleep Medicine 4303 [facility] [address] [place], [place] [id number] Stephanie Nicholson, ABRASIVE BAND WINDER, POST ANESTHESIA NURSE 4303 [facility] [address] [place] [address] Scheduled Referrals Name Type Priority Associated Diagnoses Orde r Schedule Ambulatory External Referral [facility]; Radiology Outpatient Referral Routine Chronic right-sided low back pain without sciatica Lumbar spondylosis Ordered: 03/18/2024 documented as of this encounter Visit Diagnoses Diagnosis Chronic right-sided low back pain without sciatica- Primary Lumbar spondylosis Lumbosacral spondylosis without myelopathy Anxiety due to invasive procedure documented in this encounter Care Teams Journeyman Welder Relationship Specialty Start Date End Date Rustam Goodrich MD [address] [place] [address] PCP - General 03/20/23 documented as of this encounter
--- OUTSIDE RECORDS SUMMARY | 2024-03-29 09:03 | XMS_ITS | Encounter Summary ---
Author Organization [facility] er Address [address] [place] [address] Care Team Providers Care Ball Mill Operator Name Role Phone Rustam Goodrich MD Primary Care Provider Encounter Details Date Type Department Care Team (Late st Contact Info) Description 02/05/2024 Telephone [place] [address] [place] [address] Rustam Goodrich MD 1705 [facility] 20 [place] [address] Social History Tobacco Use Types Packs/Day Years [...] How often do you attend chur or taoist services? More than 4 times per year 10/23/2023 Do you belong to any clubs o r organizations such as taoist groups, unions, fraternal or athletic groups, or [...] Date Recorded PHQ-9 Total Score 0 02/05/2024 [facility] of Occupat ional Health - Occupational [...] place to sleep or slept in a nursing home (including now)? No 03/26/2023 Housing Stability [...] any time in the past [address] [facility], were you homeless or living in a nursing home (including now)? No 10/23/2023 Education Answer [...] 02/05/2024 12:31 PM CDT Referral faxed to [facility] RAD; fax [phone]. * Telephone Encounter - Dayanara Rodríguez RN - 02/05/2024 12:23 PM CDT Please fax referral to [facility] (Radiology) documented in this encounter Plan of Treatment Upcoming Encounters Date Type Department Care Team (Late st Contact Info) Description 04/12/2024 1:00 PM DATA COLLECTION ASSOCIATE Telemedicine [facility] 52 Sleep Medicine 4303 [facility] 52 [place], [place] [phone] Stephanie Nicholson, CHIEF FISHERY DIVISION, ELECTROLYSIS OPERATOR 4303 [facility] 52 [place] [address] documented as of this encounter Visit Diagnoses Not on filedocumented in this encounter Care Teams Ball Mill Operator Relationship Specialty Start Date End Date Rustam Goodrich MD [address] [place] [address] PCP - General 03/20/23 documented as of this encounter
--- OUTSIDE RECORDS SUMMARY | 2024-03-29 09:03 | XMS_ITS | Encounter Summary ---
Author Organization [facility] er Address [address] [place] [address] Care Team Providers Care Forest Fire Lookout Name Role Phone Rustam Goodrich MD Primary Care Provider [phone] Reason for Referral * Consultation (Routine) - Authorized Specialty Diagnoses / Procedures Referred By Mike t Referred To Contact Diagnoses Right lower quadrant pain Rustam Goodrich MD 1705 [facility] 20 [place] [address] [address] Referral ID Status Reason Start Date Expiration Date V isits Requested Visits Authorized [id number] Authorized 02/05/2024 02/05/2025 1 1 Reason for Visit * Reason Comments Back Pain Encounter Details Date Type Department Care Team (Late st Contact Info) Description 02/05/2024 11:20 AM CDT Office Visit [facility] [address] [address] [place] [address] Rustam Goodrich MD [address] [address] Right lower quadrant pain (Primary Dx); Chronic [...] How often do you attend chur or yarsanism services? More than 4 times per year 10/23/2023 Do you belong to any clubs o r organizations such as muslim groups, unions, fraternal or athletic groups, or [...] Date Recorded PHQ-9 Total Score 0 02/05/2024 [facility] - Occupational Stress Questionnaire Answer Date Recorded [...] place to sleep or slept in a jail (including now)? No 03/26/2023 Housing Stability Vital [...] time in the past 12 m [facility], were you homeless or living in a jail (including now)? No 10/23/2023 Education Answer Date [...] Right lower quadrant pain Ambulatory External Referral [facility]; [place]; Radiology 2. Chronic SI joint pain X-ray [...] st Contact Info) Description 04/12/2024 1:00 PM SLIP INJECTOR AND APPLICATOR Telemedicine [facility] Sleep Medicine 4303 [facility] 52 [place], [place] [phone] Stephanie Nicholson, BINDER TECHNICIAN, METER REPAIRER 4303 [facility] 52 [address] [place], [place] [phone] Scheduled Referrals Name Type Priority Associated Diagnoses Order Schedule Ambulatory External Referral [facility]; [place]; Radiology Outpatient Referral Routine Right lower quadrant pain Ordered: 02/05/2024 documented as of this encounter Procedures Procedure Name Priority Date/Time Associated Diagnosis Comments XR HIP 2-3 VIEWS RIGHT WITH PELVIS Today 03/18/2024 11:19 AM CDT Chronic SI joint pain Chronic right hip pain documented in this encounter Results * X-ray hip 2-3 views right with pelvis (03/18/2024 11:19 AM CDT) Anatomical Region Laterality Modality Lower Extremities, Hip, Pelvis Right C omputed Radiography Impressions 03/18/2024 12:05 PM CDT Stable mild bilateral hip osteoarthritis. ??There is significant osteophytosis of the lumbar spine Narrative 03/18/2024 12:05 PM CDT INDICATION: right hip and si joint pain COMPARISON: January 14, 2017 FINDINGS: There is degenerative change of the lower lumbosacral spine with exuberant osteophytes. ??There is mild degenerative change of bilateral inferior sacroiliac joints. Very minimal bilateral hip osteoarthritis changes with lateral osteophytosis has not progressed. No hip fracture or dislocation. Procedure Note Briana Guillen MD - 03/18/2024 INDICATION: right hip and si joint pain COMPARISON: January 14, 2017 FINDINGS: There is degenerative change of the lower lumbosacral spine with exuberantosteophytes. There is mild degenerative change of bilateral inferiorsacroiliac joints. Very minimal bilateral hip osteoarthritis changes with lateralosteophytosis has not progressed. No hip fracture or dislocation. IMPRESSION: Stable mild bilateral hip osteoarthritis. There is significantosteophytosis of the lumbar spine Rustam Goodrich MD IMG XR PROCEDURES documented in this encounter Visit Diagnoses Diagnosis Right lower quadrant pain- Primary Chronic SI joint pain Disorders of sacrum Chronic right hip pain documented in this encounter Care Teams Forest Fire Lookout Relationship Specialty Start Date End Date Rustam Goodrich MD [address] [place] [address] PCP - General 03/20/23 documented as of this encounter
--- OUTSIDE RECORDS SUMMARY | 2024-03-29 09:03 | XMS_ITS | Clinical Summary ---
Author Organization [facility] er Address [address] [place] [address] Care Team Providers Care Credit Clerk Name Role Phone Rustam Goodrich MD Primary [...] each day Active losartan (Cozaar) 50 MG tabletIndications :Primary hypertension Take one a day for blood pressure 90 tablet 3 04/02/2023 Active azelaic acid (FINACEA) 15 % gelIndications:Ro sacea Apply 1 application topically 2 (two) times a day Do not fill until requested. 45 g 11 03/04/2024 5 Active LORazepam (Ativan) 0.5 MG tabletIndications :Anxiety due to invasive procedure Take 1-2 tablets (0.5-1 mg total) by mouth See administration instructions for 1 dose Take 30 minutes prior to procedure. 2 tablet 03/18/2024 Active famotidine (PEPCID) 10 MG tablet Take by mouth 4 Discontinu ed(Therapy Completed) Active Problems Problem Noted Date Diagnosed [...] Encounters Date Type Department Care Team Description 03/22/2024 Telephone [facility] 1705 [address] [facility] 20 [place] [address] Rustam Goodrich MD Follow-up Imaging Read 03/18/2024 10:51 AM CDT - 03/18/2024 11:59 PM CDT Hospital Encounter [facility] [address] [address] Discharge Disposition: Home or Self Care 03/18/2024 Telephone [employer] [address] [facility] 20 [place] [address] Rustam Goodrich MD MRI Referral 03/04/2024 2:00 PM CDT Office Visit [address] 11 [place] [address] Tiki Alexander MD Encounter for follow-up examination after completed treatment for cancer (Primary Dx); Keratosis, seborrheic; History of skin cancer; Acne rosacea; Folliculitis 02/17/2024 Telephone [employer] [facility] [address] [facility] 20 [place] [address] Rustam Goodrich MD VACCINATION TDAP 02/05/2024 11:20 AM CDT Office Visit [employer] [address] [address] Rustam Goodrich MD Right lower quadrant pain (Primary Dx); Chronic SI joint pain; Chronic right hip pain 02/05/2024 Telephone [employer] 17[address] [facility] 20 [place] [address] Rustam Goodrich MD from Last 3 Months Immunizations Name Administration [...] How often do you attend chur or muslim services? More than 4 times per year 10/23/2023 Do you belong to any clubs o r organizations such as episcopalian groups, unions, fraternal or athletic groups, or [...] Date Recorded PHQ-9 Total Score 0 02/05/2024 [facility] of Occupat ional Health - Occupational Stress [...] place to sleep or slept in a senior care (including now)? No 03/26/2023 Housing Stability Vital [...] time in the past 12 m [facility], were you homeless or living in a senior care (including now)? No 10/23/2023 Education Answer Date [...] st Contact Info) Description 04/12/2024 1:00 PM TESTER SOUND Telemedicine [facility] Sleep Medicine [address] [place] [phone] Stephanie Nicholson, SHEET METAL ERECTOR, PROGRAM ANALYST [address] [address] Health Maintenance Due Date Last Done Comments Bone Density Scan 01/15/2024 01/14/2019, , 08/27/2016 COVID-19 Vaccine ( season) 2024 03/27/2023, 03/26/2023, 03/21/2022, Additional history exists Influenza Vaccine (#1) 2024 , 03/18/2023, 04/04/2022, Additional history exists Medicare Annual Wellness Visit (AWV) 10/22/2024 10/23/2023 Fall Risk Performed 02/04/2025 02/05/2024 Mammogram 03/05/2025 03/05/2024, 10/0 07/2022, 02/26/2022, Additional history exists Colonoscopy 11/16/2027 07/24/2018 DTaP,Tdap,and Td Vaccines (3 - Td or Tdap) 02/04/2034 02/05/2024, 09/02/2012, 04/06/2010, Additional history exists Pneumococcal Vaccine: 65+ Years Completed 08/16/2016, 07/22/2011 Zoster Vaccines Completed 03/01/2022, 11/01, 08/05/2011 HPV Vaccines Aged Out No longer eligi ble based on patient's age to complete this topic Procedures Procedure Name Priority Date/Time Associated Diagnosis Comments XR HIP 2-3 VIEWS RIGHT WITH PELVIS Today 03/18/2024 11:19 AM CDT Chronic SI joint pain Chronic right hip pain from Last 3 Months Results * X-ray hip 2-3 views right [...] spine Rustam Goodrich MD IMG XR PROCEDURES from Last 3 Months Advance Directives For more information, please contact: [phone] Documents on File Type Date Recorded Patient Trailers [employer] Salesperson Expl anation Advance Directive 08/04/2020 2:37 PM Advanc e Directive Care Teams Credit Clerk Relationship Specialty Start Date End Date Rustam Goodrich MD [address] [place] [address] PCP - General 03/20/23
--- OUTSIDE RECORDS SUMMARY | 2024-03-29 09:03 | XMS_ITS | Encounter Summary ---
Author Organization [facility] er Address [address] [place] [address] Care Team Providers Care Seed Sales Manager Name Role Phone Rustam Goodrich MD Primary Care Provider [phone] Encounter Details Date Type Department Care Team (Latest Contact Info) Description 03/18/2024 10:51 AM CDT - 03/18/2024 11:59 PM CDT Hospital Encounter [place] [facility] [address] [place] [address] Discharge Disposition: Home or Self Care Social [...] How often do you attend chur or latter day services? More than 4 times per year [...] Date Recorded PHQ-9 Total Score 0 02/05/2024 [facility] of Occupat ional Health - [...] place to sleep or slept in a usp (including now)? No 03/26/2023 Housing Stability Vital Sign Answer Rao e Recorded In the last 12 months, was t here a time when you were not able to pay the mortgage or rent on time? No 10/23/2023 In the past 12 months, how m any times have you moved where you were living? 1 10/23/2023 At any time in the past 12 m onths, were you homeless or living in a usp (including now)? No 10/23/2023 Education Answer Date [...] Sig Dispensed Refills Start Date End Date azelaic acid (FINACEA) 15 % gelIndications:Rosacea Apply 1 application topically 2 (two) times a day Do not fill until requested. 45 g 11 03/04/2024 03/04/2025 Cholecalciferol (Vitamin D-3) 25 MCG (1000 UT) capsule Take 1 capsule by mouth 1 (one) time each day ibuprofen (ADVIL) 400 MG tablet Take 1 tablet (400 mg total) by mouth every 6 (six) hours if needed for mild pain Take with food. losartan (Cozaar) 50 MG tabletIndications:Prim jaycob hypertension Take one a day for blood pressure 90 tablet 3 04/02/2023 triamcinolone (KENALOG) 0.1 % cream Apply topically 2 (two) times a day Using on FACE documented as of this encounter Plan of Treatment Upcoming Encounters Date Type Department Care Team (Late st Contact Info) Description 04/12/2024 1:00 PM CLEANING MAID Telemedicine [facility] Sleep Medicine 4303 [facility] 52 [place], [place] [phone] Stephanie Nicholson, STOREROOM SUPERVISOR, PASTORAL WORKER 4303 [facility] 52 [address] [place], [place] [phone] documented as of this encounter Procedures Procedure [...] No hip fracture or dislocation. Procedure Note Braina Guillen MD - 03/18/2024 INDICATION: right hip [...] PROCEDURES documented in this encounter Visit Diagnoses Not on filedocumented in this encounter Care Teams Seed Sales Manager Relationship Specialty Start Date End Date Rustam Goodrich MD [address] [place] [address] PCP - General 03/20/23 documented as of this encounter
--- OUTSIDE RECORDS SUMMARY | 2024-03-29 09:03 | XMS_ITS | Encounter Summary ---
Author Organization [facility] er Address [address] [place] [address] Care Team Providers Care Economic Geographer Name Role Phone Rustam Goodrich MD Primary Care Provider Reason for Visit * Reason Comments Skin Check Encounter Details Date Type Department Care Team (Late st Contact Info) Description 03/04/2024 2:00 PM CDT Office Visit [address] 11 [place] [address] Tiki Alexander MD 210 [place] [address] Encounter for follow-up examination after [...] How often do you attend chur or shinto services? More than 4 times per year 10/23/2023 Do you belong to any clubs o r organizations such as sabianist groups, unions, fraternal or athletic groups, or [...] Date Recorded PHQ-9 Total Score 0 02/05/2024 [facility] of Occupat ional Health - Occupational [...] any time in the past 12 [facility], were you homeless or living in [...] st Contact Info) Description 04/12/2024 1:00 PM PACKAGING DESIGN ENGINEER Telemedicine [facility] 52 Sleep Medicine 4303 [facility] 52 [place] [address] Stephanie Nicholson, ANALYST FOOD AND BEVERAGE, SET UP OPERATOR 4303 [facility] 52 [place] [address] documented as of this encounter Visit Diagnoses Diagnosis Encounter for follow-up examination after completed treatment for cancer- Primary Keratosis, seborrheic Other seborrheic keratosis History of skin cancer Personal history of other malignant neoplasm of skin Acne rosacea Rosacea Folliculitis Other specified disease of hair and hair follicles documented in this encounter Care Teams Economic Geographer Relationship Specialty Start Date End Date Rustam Goodrich MD 1705 [facility] 20 [place] [address] PCP - General 03/20/23 documented as of this encounter
--- OUTSIDE RECORDS SUMMARY | 2024-03-29 09:03 | XMS_ITS | Encounter Summary ---
Author Organization [facility] er Address [address] [place] [address] Care Team Providers Care Director Of Distance Learning Name Role Phone Rustam Goodrich MD Primary Care Provider Reason for Visit * Reason Onset Date Comments VACCINATION TDAP 02/17/2024 Encounter Details Date Type Department Care Team (Late st Contact Info) Description 02/17/2024 Telephone Al [place] [address] [address] Rustam Goodrich MD 1705 [facility] 20 [place] [address] VACCINATION TDAP Social History Tobacco Use Types [...] How often do you attend chur or pentecostalism services? More than 4 times per year 10/23/2023 Do you belong to any clubs o r organizations such as zoroastrianism groups, unions, fraternal or athletic groups, or [...] Date Recorded PHQ-9 Total Score 0 02/05/2024 [facility] [place] of Occupat ional Health - Occupational Stress [...] place to sleep or slept in a halfway (including now)? No 03/26/2023 Housing Stability Vital Sign Answer Rao e Recorded In the last 12 months, was t here a time when you were not able to pay the mortgage or rent on time? No 10/23/2023 In the past 12 months, how m any times have you moved where you were living? 1 10/23/2023 At any time in the past 12 m [facility], were you homeless or living in a halfway (including now)? No 10/23/2023 Education Answer Date [...] was attempting to enter this info through [employer] it would show in her chart and could not. Informed that it could be awhile until this appears inher medical record, but that it would eventually. If questions, . documented in this encounter Plan of Treatment Upcoming Encounters Date Type Department Care Team (Late st Contact Info) Description 04/12/2024 1:00 PM SUPERVISOR ELECTRON TUBE PROCESSING Telemedicine [facility] 52 Sleep Medicine 4303 [facility] 52 [place] [address] Stephanie Nicholson, INSULATION BOARD CALENDER OPERATOR, BAKER TEST 4303 [facility] 52 [place] [address] documented as of this encounter Visit Diagnoses Not on filedocumented in this encounter Care Teams Director Of Distance Learning Relationship Specialty Start Date End Date Rustam Goodrich MD [address] [place] [address] PCP - General 03/20/23 documented as of this encounter
--- NOTE | 2024-03-29 09:15 | CRLHL7_ITS ---
For Patients: As a result of the Century Cures Act, medical imaging exams and procedure reports are released immediately into your electronic medical record. You may view this report before your referring provider. If you have questions, please contact your health care provider. INDICATION: Low back pain. TECHNIQUE: Sagittal and axial T1, sagittal axial T2 and sagittal STIR images were obtained. FINDINGS: There is exaggerated lumbar lordosis. Multilevel spondylosis. Minimal degenerative retrolisthesis at T12-L1 Schmorl`s node endplate changes in the low thoracic and upper lumbar endplates. No acute compression fractures. The distal spinal cord and conus medullaris appear normal conus terminates normally at L1-2. Mild disc space narrowing and mild annular bulging at T11-12 and T12-L1 without stenosis. At L1-2 degenerative disc desiccation no disc herniation central or lateral stenosis. At L2-3 degenerative disc desiccation mild annular bulging Schmorl`s node endplate changes mild facet enlargement without stenosis of the spinal canal or neural foramen. At L3-4 degenerative disc desiccation mild annular bulging moderate bilateral facet arthropathy mild narrowing of the spinal canal and mild bilateral foraminal narrowing. At L4-5 degenerative disc desiccation minor posterior annular bulge. Severe bilateral facet arthropathy with facet osteophytes small left side facet joint effusion and mild facet and periarticular edema. There is some mild central spinal canal stenosis. Lateral recesses are adequately patent. There is mild bilateral foraminal narrowing. At L5-S1 degenerative disc space narrowing. Circumferential marginal osteophytes without stenosis of the spinal canal and neural foramen are adequately patent. The included portions of the sacroiliac joints are unremarkable. IMPRESSION: 1. Multilevel lumbar spondylosis. Exaggerated lumbar lordosis. 2. At L4-5 severe bilateral facet arthropathy with associated mild central spinal canal stenosis and mild bilateral foraminal narrowing. 3. At L3-4 broad-based disc bulge and moderate facet arthropathy cause mild central stenosis. 4. At L5-S1 advanced disc degeneration with marginal osteophytes and mild bilateral foraminal narrowing. 5. Less prominent disc degeneration and facet arthropathy at the other lumbar and lower thoracic levels as described above. Dictated by Jean Paul Prajapati MD @ 03/30/2024 7:56:06 AM (Electronically Signed)
== END 2024-03-29 08:58 | disposition home or self-care (01) ==
LOC: MRI 08:58
PROVIDERS: PCP Family Medicine; Visit Provider Family Medicine
DX: M54.50 Low back pain, unspecified (principal); M47.816 Spondylosis without myelopathy or radiculopathy, lumbar region; M51.379 Other intervertebral disc degeneration, lumbosacral region without mention of lumbar back pain or lower extremity pain; M51.26 Other intervertebral disc displacement, lumbar region
CPT/HCPCS: 72148

== ENCOUNTER 2024-06-10 12:53 | Outpatient (CLI) | payer MEDICARE, BC, SELFPAY ==
--- NOTE | 2024-06-10 13:30 | CRLHL7_ITS ---
For Patients: As a result of the Century Cures Act, medical imaging exams and procedure reports are released immediately into your electronic medical record. You may view this report before your referring provider. If you have questions, please contact your health care provider. XR DXA Bone Mineral Density (BMD) Reason for exam: Osteopenia. Current height (in): 61. Weight (lb): 160. Menopause age: 54. Ethnicity: White. 1. Have you had a previous hip or vertebral fracture? No. 2. Have you had any fractures during your adult life which did not result from significant trauma (e.g., auto accident)? No. 3. Did either of your parents have a hip fracture? Yes. 4. Do you smoke? No. 5. Have you ever taken Glucocorticoids? No. 6. Do you have rheumatoid arthritis? No. 7. Do you have secondary osteoporosis? No. 8. Do you drink 3 or more alcoholic drinks per day? No. 9. Are you being treated for osteoporosis? No. 10. Have you ever taken any of the following medications: Actonel, Evista, Fosamax, Miacalcin, Reclast, Boniva, Forteo, HRT (i.e., estrogen/hormone therapy), Protelos, Prolia, Vitamin D, Calcium, other ??? please specify. ANSWER: Yes, Vitamin D. 11. Do you have any of the following medical conditions: Anorexia or bulimia, asthma or emphysema, end stage renal disease, hyperparathyroidism, any seizure disorders, cancer, inflammatory bowel diseases, hysterectomy, other ??? please specify. ANSWER: No. 12. What was your maximum height (inches)? 62. 13. Do you perform weight bearing exercise regularly? No. 14. Do you regularly consume dairy products? Yes. 15. Do you drink caffeinated beverages? Yes. 16. At what age did your period start? 14. 17. Are you premenopausal? No. 18. How many full-term pregnancies have you had? 0. 19. Have you ever missed your period for more than 6 months in a row (not including or menopause)? No. TECHNIQUE: Bone mineral density study was performed using the finalsite. FINDINGS: The results of the study expressed as bone mineral density (BMD) are as follows: Lumbar spine L1 to L2: BMD: 1.078 g/cm2. T-score: 0.9. Z-score: 3.3 Neck Left: BMD: 0.758 g/cm2. T-score: -0.8. Z-score: 1.4 Right: BMD: 0.728 g/cm2. T-score: -1.1. Z-score: 1.2 Total Left: BMD: 1.024 g/cm2. T-score: 0.7. Z-score: 2.7 Right: BMD: 1.034 g/cm2. T-score: 0.8. Z-score: 2.7 IMPRESSION: Osteopenia. *Comparison exams done prior to 11/2019 were performed on different unit, [employer]. COMPARISON: Compared with scan of 04/15/2023, the bone mineral density has decreased by 1.6 percent at the spine and increased by 1.1 percent at the hip. Compared with scan of 08/01/2011, the bone mineral density has increased by 9.0 percent at the spine and increased by 2.6 percent at the hip. FRAX 10-year Fracture Risk Major Osteoporotic Fracture: 18% Hip Fracture: 8.9% Reported Risk Factors: [place] () Neck BMD=0.728, BMI=30.2, parental fracture. Param Lubin M.D. Diagnostic Radiologist [email or web address] STALIN/[email or web address]/Dictated by: Param Lubin MD @ 06/11/2024 7:18:00 AM (Electronically Signed)
--- NOTE | 2024-06-10 14:00 | CRLHL7_ITS ---
For Patients: As a result of the Cures Act, medical imaging exams and procedure reports are released immediately into your electronic medical record. You may view this report before your referring provider. If you have questions, please contact your health care provider. INDICATION: Abnormal thyroid exam by the physician COMPARISON: none TECHNIQUE: Ribera scale and color Doppler images were acquired of the thyroid gland. FINDINGS: Hypoechoic nodule within the left thyroid lobe measures 7 x 4 x 5 millimeters, TR 4. Sponge like nodule left thyroid lobe measures 1.2 x 0.5 x 1.1 cm, TR 2. Solid near isoechoic nodule left thyroid lobe measures 1.0 x 0.8 x 0.7 cm, TR 3. Hypoechoic nodule at the isthmus measures 6 x 3 x 7 millimeters, TR 4. Isthmus measures 2.4 millimeters. Solid heterogeneous hypoechoic nodule right thyroid lobe measures 1.5 x 0.7 x 1.1 cm, TR 4. Solid and cystic nodule right thyroid lobe measures 7 x 6 x 8 millimeters, TR 3. Thyroid echotexture is heterogeneous. The right lobe measures 4.7 x 1.6 x 1.4 cm and the left lobe measures 5.2 x 1.4 x 1.7 cm in size. The color Doppler images demonstrate increased vascularity. There is no evidence of cervical lymphadenopathy or parathyroid mass. IMPRESSION: Bilateral thyroid nodules. The largest is located on the right and measures 1.5 cm, TR 4, FNA should be considered. Dictated by Param Lubin MD @ 06/11/2024 12:29:03 PM (Electronically Signed)
== END 2024-06-10 12:54 | disposition home or self-care (01) ==
PROVIDERS: PCP Family Medicine; Visit Provider Family Medicine
DX: R94.6 Abnormal results of thyroid function studies (principal); E04.1 Nontoxic single thyroid nodule; M85.88 Other specified disorders of bone density and structure, other site; M85.80 Other specified disorders of bone density and structure, unspecified site; Z78.0 Asymptomatic menopausal state
CPT/HCPCS: 76536; 77080

== ENCOUNTER 2024-07-02 09:35 | Outpatient (CLI) | payer MEDICARE, BC, SELFPAY | END 2024-07-02 09:36 | disposition home or self-care (01) | LOC: US 09:36 | PROVIDERS: PCP Family Medicine; Visit Provider Family Medicine | DX: E04.1 Nontoxic single thyroid nodule (principal) | CPT/HCPCS: 10005; 76942; 88173 ==